=== PATIENT | male | born 1980 | race Hispanic/Latino ===

== ENCOUNTER 2018-06-22 16:14 | Inpatient (IN) | payer OTHER ==
[~2018-06-22] VITALS: Ht 175.3 cm; Wt 107.0 kg
--- OUTSIDE RECORDS SUMMARY | 2018-06-22 16:16 | XMS REPORT | Continuity of Care Document ---
Author Author [facility] Interface Address Unknown Phone Unavailable Problems Problem Status Onset Date Classification Date Reported Comments Source Acute tonsillitis 06/18/2016 Diagnosis 06/18/2016 [facility] Pain in throat 06/18/2016 Diagnosis 06/18/2016 [facility] ABSCESS, ANAL/RECTAL REGIONS SP I&D 07/20/14 Active 07/23/2014 Condition 07/23/2014 [facility] NEOPLASMS UNSPEC NATURE BONE SOFT TISSUE&SKIN Inactive 06/01/2013 Condition 07/23/2014 [facility] NEED PROPH VAC W/COMB YDNECL-DTURKHA-SPRACIK VAC Inactive 06/01/2013 Condition 07/23/2014 [facility] MUSCLE SPASM Inactive 06/01/2013 Condition 07/23/2014 [facility] MICROSCOPIC HEMATURIA Active 05/03/2013 Condition 07/23/2014 [facility] DERMATITIS Inactive 05/03/2013 Condition 07/23/2014 [facility] TACHYCARDIA Inactive 02/21/2013 Condition 07/23/2014 [facility] DYSPEPSIA Active 02/21/2013 Condition 07/23/2014 [facility] BACK PAIN, LUMBAR, WITH RADICULOPATHY Active 02/21/2013 Condition 07/23/2014 [facility] LUMBAR SPRAIN AND STRAIN Active 11/24/2012 Condition 07/23/2014 [facility] CHLAMYDIA URETHRITIS Inactive 05/10/2012 Condition 07/23/2014 [facility] SCREENING, DIABETES MELLITUS Inactive 05/06/2012 Condition 07/23/2014 [facility] TINEA PEDIS Active 05/06/2012 Condition 07/23/2014 [facility] ERECTILE DYSFUNCTION, NON-ORGANIC Active 05/06/2012 Condition 07/23/2014 [facility] SCREENING EXAMINATION FOR VENEREAL DISEASE Inactive 10/06/2011 Condition 07/23/2014 [facility] INFLUENZA Inactive 09/19/2010 Condition 07/23/2014 [facility] GASTROENTERITIS Inactive 06/23/2010 Condition 07/23/2014 [facility] PHARYNGITIS Inactive 05/04/2010 Condition 07/23/2014 [facility] BRONCHITIS, ACUTE Inactive 04/14/2010 Condition 07/23/2014 [facility] ANXIETY Inactive 11/10/2009 Condition 07/23/2014 [facility] CERVICAL STRAIN, WITH RADICULOPATHY Active 11/08/2009 Condition 07/23/2014 [facility] URI Inactive 10/07/2009 Condition 07/23/2014 [facility] PANIC ATTACK Inactive 07/05/2009 Condition 07/23/2014 [facility] HYPERTRIGLYCERIDEMIA Active 07/05/2009 Condition 07/23/2014 [facility] CHEST PAIN Inactive 05/15/2009 Condition 07/23/2014 [facility] WELL ADULT Inactive 05/15/2009 Condition 07/23/2014 [facility] INSOMNIA Active 05/15/2009 Condition 07/23/2014 [facility] ANXIETY DISORDER Active 12/28/2007 Condition 07/23/2014 [facility] HYPERTENSION - BENIGN ESSENTIAL Active Condition 07/23/2014 [facility] Acute Sinusitis Problem 06/18/2016 [facility] Medications Medication Details Route Status Patient Instructions Ordering Provider Order Date Source METRONIDAZOLE 250 MG TABS 1 tab by mouth three times daily Active 07/23/2014 [facility] CIPRO 500 MG TABS 1 tab every 12 hours Active 07/23/2014 [facility] LITHIUM CARBONATE 150 MG CAPS 1 capsule daily Active 07/23/2014 [facility] METHOCARBAMOL 750 MG TABS 1 tab as needed for spasms Active 07/23/2014 [facility] VITAMIN D2 TABS 1 tab by mouthonce weekly Active 07/23/2014 [facility] TRAMADOL HCL 50 MG TABS 1 tablet every 8 hours as needed for pain Active 07/23/2014 [facility] ATORVASTATIN CALCIUM 10 MG TABS 1 tab po daily prn for cholesterol Active 06/01/2013 [facility] LIDODERM 5 % PTCH Cut to size necessary and apply to affected area for 12 hours a day Active 06/01/2013 [facility] LIDODERM 5 % PTCH Cut to size necessary and apply to affected area for 12 hours a day No Longer Active 06/01/2013 [facility] ATORVASTATIN CALCIUM 10 MG TABS 1 tab po daily prn for cholesterol No Longer Active 06/01/2013 [facility] BENICAR HCT 40-25 MG TABS 1 tab po daily for blood pressure Active 05/03/2013 [facility] CLOTRIMAZOLE-BETAMETHASONE 1-0.05 % CREA Apply to the affected area twice a day x 7 days No Longer Active 05/03/2013 [facility] TERBINAFINE HCL 250 MG TABS 1 tablet daily x 1 month Active 05/03/2013 [facility] CLOTRIMAZOLE-BETAMETHASONE 1-0.05 % CREA Apply to the affected area twice a day x 7 days No Longer Active 05/03/2013 [facility] TERBINAFINE HCL 250 MG TABS 1 tablet daily x 1 month No Longer Active 05/03/2013 [facility] CYCLOBENZAPRINE HCL 10 MG TABS 1 tablet nightly as needed for muscle spasms Active 04/06/2013 [facility] CYCLOBENZAPRINE HCL 10 MG TABS 1 tablet nightly as needed for muscle spasms No Longer Active 04/06/2013 [facility] OMECLAMOX-UTE 500-500-20 MG MISC take as directed No Longer Active 02/22/2013 [facility] TERBINAFINE HCL 250 MG TABS 1 tab po daily x 12 weeks No Longer Active 02/03/2013 [facility] TERBINAFINE HCL 250 MG TABS 1 tab po daily x 12 weeks No Longer Active 02/03/2013 [facility] ATORVASTATIN CALCIUM 10 MG TABS 1 tab po daily for cholesterol Active 11/27/2012 [facility] EFFEXOR XR 150 MG [id number] 1 tab po qam for mood Active 11/24/2012 [facility] VICODIN 5-300 MG TABS 1-2 tabs po q8 hours as needed for severe pain No Longer Active 11/24/2012 [facility] BUPROPION HCL ER (XL) 150 MG [id number] 1 tab po daily for mood No Longer Active 11/24/2012 [facility] EFFEXOR XR 150 MG [id number] 1 tab po qam for mood Active 11/24/2012 [facility] NAPROXEN 500 MG TABS 1 tab po q12 hrs prn pain No Longer Active 05/18/2012 [facility] AZITHROMYCIN 250 MG TABS 4 tabs po x 1 now for infection No Longer Active 05/10/2012 [facility] PRISTIQ 50 MG [id number] 50 mg daily No Longer Active 05/06/2012 [facility] VIAGRA 50 MG TABS 50mg po x 1 prior to intercourse No Longer Active 05/06/2012 [facility] PRISTIQ 50 MG [id number] 50 mg daily No Longer Active 10/06/2011 [facility] ABILIFY 5 MG TABS 1 tab po daily No Longer Active 10/06/2011 [facility] BUSPIRONE HCL 15 MG TABS 1 tab po twice daily No Longer Active 10/06/2011 [facility] ABILIFY 5 MG TABS 1 tab po daily No Longer Active 10/06/2011 [facility] BUSPIRONE HCL 15 MG TABS 1 tab po twice daily No Longer Active 10/06/2011 [facility] HYDROCHLOROTHIAZIDE 25 MG TAB 1 PO qam No Longer Active 10/28/2010 [facility] XANAX 1 MG TABS 1 po bid prn anxiety No Longer Active 10/28/2010 [facility] PAXIL 20 MG TABS 1 po daily No Longer Active 10/28/2010 [facility] XANAX 1 MG TABS 1 po bid prn anxiety No Longer Active 10/28/2010 [facility] VICODIN 5-500 MG TABS 1 po q12h prn pain Inactive 08/13/2010 [facility] TUSSIONEX PENNKINETIC ER 8-10 MG/5ML LQCR 1 tsp bid prn cough drowsy caution Inactive 08/13/2010 [facility] ZITHROMAX Z-UTE TABS as directed for infection Inactive 08/13/2010 [facility] PREDNISONE 20 MG TABS 2 tabs po qd X 5 days Inactive 08/13/2010 [facility] SEROQUEL 100 MG TABS 1/2 - 1 po qhs prn insomnia / agitation No Longer Active 08/13/2010 [facility] PREDNISONE 20 MG TABS 2 tabs po qd X 5 days Inactive 08/13/2010 [facility] SEROQUEL 100 MG TABS 1/2 - 1 po qhs prn insomnia / agitation No Longer Active 08/13/2010 [facility] TAMIFLU 75 MG CAPS 1 tab po bid X 5 days with food Inactive 04/29/2010 [facility] SEROQUEL 100 MG TABS 1/2-1 po qhs prn agitation Inactive 04/07/2010 [facility] FLEXERIL 10 MG TABS 1 po qhs prn spasm Inactive 04/07/2010 [facility] MOXATAG 775 MG [id number] 1 po qd Inactive 04/07/2010 [facility] SEROQUEL 100 MG TABS 1/2-1 po qhs prn agitation Inactive 04/07/2010 [facility] MEDROL (UTE) TABS take as directed Inactive 02/04/2010 [facility] CYMBALTA 60 MG CPEP 1 po qd Inactive 12/26/2009 [facility] CLONAZEPAM 0.5 MG TABS 1 po qd prn anxiety Inactive 12/26/2009 [facility] CYMBALTA 60 MG CPEP 1 po qd Inactive 12/26/2009 [facility] CLONAZEPAM 0.5 MG TABS 1 po qd prn anxiety Inactive 12/26/2009 [facility] LISINOPRIL 10 MG TABS 1 po qd Inactive 11/08/2009 [facility] MOXATAG 775 MG [id number] 1 po qd Inactive 11/08/2009 [facility] TUSSIONEX PENNKINETIC ER 8-10 MG/5ML LQCR 1 tsp qhs prn cough drowsy caution Inactive 11/08/2009 [facility] LISINOPRIL 10 MG TABS 1 po qd Inactive 11/08/2009 [facility] ZOLOFT 100 MG TABS 1 po qd Inactive 08/27/2009 [facility] ZOLOFT 100 MG TABS 1 po qd Inactive 08/27/2009 [facility] ZOLOFT 50 MG TABS 1 po qd Inactive 07/05/2009 [facility] ZOLOFT 50 MG TABS 1 po qd Inactive 07/05/2009 [facility] COREG CR 80 MG CP24 1 po qd Inactive 02/15/2008 [facility] aripiprazole 5 MG Oral Tablet [Abilify] Abilify 5 mg tablet Active [facility] alprazolam alprazolam Active [facility] 1 ML methylprednisolone acetate 80 MG/ML Injection [Depo-Medrol] Depo-Medrol 80 mg/mL suspension for injection 80 mg/mL IM injectable x 1 Active [facility] Hydrochlorothiazide 25 MG Oral Tablet hydrochlorothiazide 25 mg tablet Active [facility] lisinopril lisinopril Active [facility] Hydrochlorothiazide 12.5 MG / Lisinopril 10 MG Oral Tablet lisinopril 10 mg-hydrochlorothiazide 12.5 mg tablet Active [facility] [place] Carbonate 150 MG Oral Capsule lithium carbonate 150 mg capsule TAKE 2 CAPSULES BY MOUTH EVERY DAY Active [facility] Paroxetine Hydrochloride 10 MG Oral Tablet paroxetine 10 mg tablet Active [facility] Paroxetine Hydrochloride 20 MG Oral Tablet paroxetine 20 mg tablet Active [facility] 24 HR desvenlafaxine succinate 100 MG Extended Release Oral Tablet [Pristiq] Pristiq 100 mg tablet,extended release Active [facility] 24 HR desvenlafaxine succinate 50 MG Extended Release Oral Tablet [Pristiq] Pristiq 50 mg tablet,extended release Active [facility] Allergies, Adverse Reactions, Alerts Substance Category Reaction Severity Reaction type Status Date Reported Comments Source Immunizations Immunization Date Given Site Status Last Updated Comments Source Results Order Name Results Value Reference Range Date Interpretation Comments Source RESULT negative 06/18/2016 [facility] SWAB LOCATION Left and Right tonsillar pillars 06/18/2016 [facility] Chemistry CHOLESTEROL 194 mg/dl - 199 02/21/2013 [facility] TRIGLYCERIDE 397 mg/dl - 149 02/21/2013 [facility] Chemistry HDL 55 mg/dl >=61 02/21/2013 [facility] Chemistry LDL 60 mg/dl - 99 02/21/2013 [facility] Chemistry SODIUM 135 MEQ/L mmol/L 135 - 145 02/21/2013 [facility] Chemistry POTASSIUM 4.2 MEQ/L mmol/L 3.5 - 5.1 02/21/2013 [facility] Chemistry CREATININE 1.1 mg/dL 0.5 - 1.4 02/21/2013 [facility] Chemistry BUN 20 mg/dL 7 - 22 02/21/2013 [facility] Chemistry BUN/CREAT 18 6 - 25 02/21/2013 [facility] Chemistry ALBUMIN 5.2 g/dL 3.5 - 5.0 02/21/2013 [facility] Chemistry CALCIUM 10.6 mg/dL 8.5 - 10.5 02/21/2013 [facility] Chemistry SGPT (ALT) 37 U/L 0 - 65 02/21/2013 [facility] Chemistry SGOT (AST) 34 U/L 0 - 37 02/21/2013 [facility] Chemistry ALK PHOS 115 U/L 39 - 136 02/21/2013 [facility] Chemistry TSH 2.400 uIU/mL 0.360 - 3.740 02/21/2013 [facility] Hematology HGB 17.1 g/dL 14.0 - 18.0 02/21/2013 [facility] Hematology HCT 49.2 % 42.0 - 54.0 02/21/2013 [facility] Hematology PLATELETS 333 K/CMM /mm3 133 - 450 02/21/2013 [facility] Urinalysis UA COLOR Yellow 02/21/2013 [facility] Urinalysis BACTERIA URN Occasional 02/21/2013 [facility] Chemistry CHOLESTEROL 270 mg/dl - 199 11/24/2012 [facility] TRIGLYCERIDE 348 mg/dl - 149 11/24/2012 [facility] Chemistry HDL 58 mg/dl >=61 11/24/2012 [facility] Chemistry LDL 142 mg/dl - 99 11/24/2012 [facility] Chemistry SODIUM 138 MEQ/L mmol/L 135 - 145 11/24/2012 [facility] Chemistry POTASSIUM 4.0 MEQ/L mmol/L 3.5 - 5.1 11/24/2012 [facility] Chemistry CREATININE 1.1 mg/dL 0.5 - 1.4 11/24/2012 [facility] Chemistry BUN 12 mg/dL 7 - 11/24/2012 [facility] Chemistry BUN/CREAT 11 6 - 25 11/24/2012 [facility] Chemistry ALBUMIN 4.6 g/dL 3.5 - 5.0 11/24/2012 [facility] Chemistry CALCIUM 9.6 mg/dL 8.5 - 10.5 11/24/2012 [facility] Chemistry SGPT (ALT) 29 U/L 0 - 65 11/24/2012 [facility] Chemistry SGOT (AST) 26 U/L 0 - 37 11/24/2012 [facility] Chemistry ALK PHOS 83 U/L 39 - 136 11/24/2012 [facility] Chemistry CHOLESTEROL 270 mg/dl - 199 11/24/2012 [facility] TRIGLYCERIDE 348 mg/dl - 149 11/24/2012 [facility] Chemistry HDL 58 mg/dl >=61 11/24/2012 [facility] Chemistry LDL 142 mg/dl - 99 11/24/2012 [facility] Chemistry SODIUM 138 MEQ/L mmol/L 135 - 145 11/24/2012 [facility] Chemistry POTASSIUM 4.0 MEQ/L mmol/L 3.5 - 5.1 11/24/2012 [facility] Chemistry CREATININE 1.1 mg/dL 0.5 - 1.4 11/24/2012 [facility] Chemistry BUN 12 mg/dL 7 - 22 11/24/2012 [facility] Chemistry BUN/CREAT 11 6 - 25 11/24/2012 [facility] Chemistry ALBUMIN 4.6 g/dL 3.5 - 5.0 11/24/2012 [facility] Chemistry CALCIUM 9.6 mg/dL 8.5 - 10.5 11/24/2012 [facility] Chemistry SGPT (ALT) 29 U/L 0 - 65 11/24/2012 [facility] Chemistry SGOT (AST) 26 U/L 0 - 37 11/24/2012 [facility] Chemistry ALK PHOS 83 U/L 39 - 136 11/24/2012 [facility] Urinalysis UA COLOR Yellow 11/24/2012 [facility] Urinalysis BACTERIA URN Occasional 11/24/2012 [facility] Urinalysis UA COLOR Yellow 11/24/2012 [facility] Urinalysis BACTERIA URN Occasional 11/24/2012 [facility] Chemistry HGBA1C 5.5 % 05/06/2012 [facility] CHOLESTEROL 226 mg/dl 120 - 200 05/06/2012 [facility] TRIGLYCERIDE 373 mg/dl 0 - 200 05/06/2012 [facility] Chemistry HDL 55 mg/dl >=35 05/06/2012 [facility] Chemistry LDL 96 mg/dl 0 - 129 05/06/2012 [facility] Chemistry SODIUM 141 MEQ/L mmol/L 135 - 145 05/06/2012 [facility] Chemistry POTASSIUM 3.9 MEQ/L mmol/L 3.5 - 5.1 05/06/2012 [facility] Chemistry CREATININE 1.0 mg/dL 0.5 - 1.4 05/06/2012 [facility] Chemistry BUN 14 mg/dL 7 - 22 05/06/2012 [facility] Chemistry BUN/CREAT 14 6 - 25 05/06/2012 [facility] Chemistry ALBUMIN 4.5 g/dL 3.5 - 5.0 05/06/2012 [facility] Chemistry CALCIUM 8.9 mg/dL 8.5 - 10.5 05/06/2012 [facility] Chemistry SGPT (ALT) 45 U/L 0 - 65 05/06/2012 [facility] Chemistry SGOT (AST) 39 U/L 0 - 37 05/06/2012 [facility] Chemistry ALK PHOS 69 U/L 39 - 136 05/06/2012 [facility] Serology RPR Non Reactive 05/06/2012 [facility] Urinalysis UA COLOR Yellow 05/06/2012 [facility] Urinalysis BACTERIA URN Few 05/06/2012 [facility] Serology RPR Non Reactive 10/06/2011 [facility] Chemistry CHOLESTEROL 235 mg/dl 120 - 200 06/19/2009 [facility] TRIGLYCERIDE 404 mg/dl 0 - 200 06/19/2009 [facility] Chemistry HDL 59 mg/dl >=35 06/19/2009 [facility] Chemistry LDL 95 mg/dl 0 - 129 06/19/2009 [facility] Chemistry TSH 1.610 uIU/mL 0.360 - 3.740 06/19/2009 [facility] Chemistry SODIUM 136 mmol/L 135 - 145 06/19/2009 [facility] Chemistry POTASSIUM 3.9 mmol/L 3.5 - 5.1 06/19/2009 [facility] Chemistry BUN 22 mg/dL 7 - 22 06/19/2009 [facility] Chemistry CREATININE 1.2 mg/dL 0.5 - 1.4 06/19/2009 [facility] Chemistry BUN/CREAT 18 6 - 25 06/19/2009 [facility] Chemistry ALBUMIN 4.4 g/dL 3.5 - 5.0 06/19/2009 [facility] Chemistry CALCIUM 9.5 mg/dL 8.5 - 10.5 06/19/2009 [facility] Chemistry SGOT (AST) 35 U/L 0 - 37 06/19/2009 [facility] Chemistry SGPT (ALT) 39 U/L 0 - 65 06/19/2009 [facility] Chemistry ALK PHOS 72 U/L 39 - 136 06/19/2009 [facility] Hematology HGB 16.0 g/dL 14.0 - 18.0 06/19/2009 [facility] Hematology HCT 46.4 % 42.0 - 54.0 06/19/2009 [facility] Hematology PLATELETS 187 K/CMM /mm3 133 - 450 06/19/2009 [facility] Urinalysis UA COLOR Yellow Yellow 06/19/2009 [facility] Vital Signs Vital Sign Value Date Comments Source Diastolic (mm Hg) 86 06/18/2016 [facility] Height 69 06/18/2016 [facility] Systolic (mm Hg) 130 06/18/2016 [facility] Weight 210 06/18/2016 [facility] Height 69 07/23/2014 [facility] Weight 209 07/23/2014 [facility] Temperature Oral (F) 95.8 F 07/23/2014 [facility] Heart Rate 94 07/23/2014 [facility] Systolic (mm Hg) 126 07/23/2014 [facility] Diastolic (mm Hg) 75 07/23/2014 [facility] Weight 212 06/01/2013 [facility] Temperature Oral (F) 96.9 F 06/01/2013 [facility] Systolic (mm Hg) 123 06/01/2013 [facility] Diastolic (mm Hg) 82 06/01/2013 [facility] Heart Rate 95 06/01/2013 [facility] Weight 206 05/03/2013 [facility] Temperature Oral (F) 97.2 F 05/03/2013 [facility] Systolic (mm Hg) 129 05/03/2013 [facility] Diastolic (mm Hg) 75 05/03/2013 [facility] Heart Rate 97 05/03/2013 [facility] Temperature Oral (F) 98.1 F 02/21/2013 [facility] Systolic (mm Hg) 148 02/21/2013 [facility] Diastolic (mm Hg) 106 02/21/2013 [facility] Weight 203 02/21/2013 [facility] Heart Rate 131 02/21/2013 [facility] Temperature Oral (F) 98.7 F 11/24/2012 [facility] Heart Rate 125 11/24/2012 [facility] Systolic (mm Hg) 135 11/24/2012 [facility] Diastolic (mm Hg) 92 11/24/2012 [facility] Weight 206 11/24/2012 [facility] Weight 212 05/06/2012 [facility] Respitory Rate 18 05/06/2012 [facility] Temperature Oral (F) 97.8 F 05/06/2012 [facility] Heart Rate 106 05/06/2012 [facility] Systolic (mm Hg) 148 05/06/2012 [facility] Diastolic (mm Hg) 98 05/06/2012 [facility] Weight 207 10/06/2011 [facility] Temperature Oral (F) 99.0 F 10/06/2011 [facility] Systolic (mm Hg) 159 10/06/2011 [facility] Diastolic (mm Hg) 102 10/06/2011 [facility] Heart Rate 105 10/06/2011 [facility] Weight 212 03/06/2011 [facility] Respitory Rate 18 03/06/2011 [facility] Heart Rate 94 03/06/2011 [facility] Systolic (mm Hg) 142 03/06/2011 [facility] Diastolic (mm Hg) 95 03/06/2011 [facility] Temperature Oral (F) 98.0 F 03/06/2011 [facility] Weight 208 02/11/2011 [facility] Temperature Oral (F) 98.1 F 02/11/2011 [facility] Respitory Rate 18 02/11/2011 [facility] Heart Rate 97 02/11/2011 [facility] Systolic (mm Hg) 158 02/11/2011 [facility] Diastolic (mm Hg) 102 02/11/2011 [facility] Weight 208 02/05/2011 [facility] Temperature Oral (F) 96.8 F 02/05/2011 [facility] Respitory Rate 20 02/05/2011 [facility] Heart Rate 85 02/05/2011 [facility] Systolic (mm Hg) 125 02/05/2011 [facility] Diastolic (mm Hg) 90 02/05/2011 [facility] Weight 205 10/28/2010 [facility] Temperature Oral (F) 96.6 F 10/28/2010 [facility] Systolic (mm Hg) 143 10/28/2010 [facility] Diastolic (mm Hg) 97 10/28/2010 [facility] Heart Rate 78 10/28/2010 [facility] Height 69 09/17/2010 [facility] Weight 201 09/17/2010 [facility] Temperature Oral (F) 97.7 F 09/17/2010 [facility] Heart Rate 98 09/17/2010 [facility] Systolic (mm Hg) 133 09/17/2010 [facility] Diastolic (mm Hg) 90 09/17/2010 [facility] Height 69 08/13/2010 [facility] Weight 204 08/13/2010 [facility] Temperature Oral (F) 97.4 F 08/13/2010 [facility] Systolic (mm Hg) 148 08/13/2010 [facility] Diastolic (mm Hg) 92 08/13/2010 [facility] Heart Rate 86 08/13/2010 [facility] Height 69 06/23/2010 [facility] Weight 200 06/23/2010 [facility] Respitory Rate 21 06/23/2010 [facility] Temperature Oral (F) 98.7 F 06/23/2010 [facility] Systolic (mm Hg) 137 06/23/2010 [facility] Diastolic (mm Hg) 92 06/23/2010 [facility] Heart Rate 100 06/23/2010 [facility] Height 69 04/29/2010 [facility] Weight 205 04/29/2010 [facility] Temperature Oral (F) 96.4 F 04/29/2010 [facility] Heart Rate 105 04/29/2010 [facility] Systolic (mm Hg) 135 04/29/2010 [facility] Diastolic (mm Hg) 95 04/29/2010 [facility] Height 69 04/15/2010 [facility] Weight 203 04/15/2010 [facility] Respitory Rate 21 04/15/2010 [facility] Heart Rate 91 04/15/2010 [facility] Systolic (mm Hg) 138 04/15/2010 [facility] Diastolic (mm Hg) 80 04/15/2010 [facility] Temperature Oral (F) 99.1 F 04/15/2010 [facility] Height 69 04/14/2010 [facility] Weight 202 04/14/2010 [facility] Temperature Oral (F) 97.8 F 04/14/2010 [facility] Respitory Rate 21 04/14/2010 [facility] Heart Rate 114 04/14/2010 [facility] Systolic (mm Hg) 141 04/14/2010 [facility] Diastolic (mm Hg) 96 04/14/2010 [facility] Height 69 04/07/2010 [facility] Weight 203 04/07/2010 [facility] Respitory Rate 21 04/07/2010 [facility] Temperature Oral (F) 100.1 F 04/07/2010 [facility] Heart Rate 91 04/07/2010 [facility] Systolic (mm Hg) 144 04/07/2010 [facility] Diastolic (mm Hg) 88 04/07/2010 [facility] Height 69 02/13/2010 [facility] Weight 202 02/13/2010 [facility] Temperature Oral (F) 97.6 F 02/13/2010 [facility] Heart Rate 71 02/13/2010 [facility] Systolic (mm Hg) 136 02/13/2010 [facility] Diastolic (mm Hg) 85 02/13/2010 [facility] Weight 202 02/04/2010 [facility] Temperature Oral (F) 97.6 F 02/04/2010 [facility] Height 69 02/04/2010 [facility] Systolic (mm Hg) 149 02/04/2010 [facility] Diastolic (mm Hg) 91 02/04/2010 [facility] Heart Rate 77 02/04/2010 [facility] Height 69 12/26/2009 [facility] Weight 205 12/26/2009 [facility] Temperature Oral (F) 97.6 F 12/26/2009 [facility] Respitory Rate 20 12/26/2009 [facility] Heart Rate 105 12/26/2009 [facility] Systolic (mm Hg) 159 12/26/2009 [facility] Diastolic (mm Hg) 86 12/26/2009 [facility] Height 69 11/08/2009 [facility] Weight 201 11/08/2009 [facility] Temperature Oral (F) 98.7 F 11/08/2009 [facility] Respitory Rate 20 11/08/2009 [facility] Heart Rate 82 11/08/2009 [facility] Systolic (mm Hg) 118 11/08/2009 [facility] Diastolic (mm Hg) 73 11/08/2009 [facility] Height 69 10/07/2009 [facility] Weight 208 10/07/2009 [facility] Temperature Oral (F) 98.8 F 10/07/2009 [facility] Respitory Rate 21 10/07/2009 [facility] Heart Rate 101 10/07/2009 [facility] Systolic (mm Hg) 142 10/07/2009 [facility] Diastolic (mm Hg) 99 10/07/2009 [facility] Height 69 08/27/2009 [facility] Weight 208 08/27/2009 [facility] Temperature Oral (F) 98.3 F 08/27/2009 [facility] Respitory Rate 20 08/27/2009 [facility] Heart Rate 80 08/27/2009 [facility] Systolic (mm Hg) 149 08/27/2009 [facility] Diastolic (mm Hg) 100 08/27/2009 [facility] Weight 216.75 07/05/2009 [facility] Height 69 07/05/2009 [facility] Temperature Oral (F) 98.5 F 07/05/2009 [facility] Respitory Rate 20 07/05/2009 [facility] Heart Rate 112 07/05/2009 [facility] Systolic (mm Hg) 143 07/05/2009 [facility] Diastolic (mm Hg) 95 07/05/2009 [facility] Height 69 05/15/2009 [facility] Weight 201 05/15/2009 [facility] Temperature Oral (F) 98.6 F 05/15/2009 [facility] Respitory Rate 20 05/15/2009 [facility] Heart Rate 74 05/15/2009 [facility] Systolic (mm Hg) 133 05/15/2009 [facility] Diastolic (mm Hg) 87 05/15/2009 [facility] Height 69 12/28/2007 [facility] Weight 207 12/28/2007 [facility] Temperature Oral (F) 98.4 F 12/28/2007 [facility] Respitory Rate 18 12/28/2007 [facility] Heart Rate 79 12/28/2007 [facility] Systolic (mm Hg) 159 12/28/2007 [facility] Diastolic (mm Hg) 98 12/28/2007 [facility] Encounters Location Location Details Encounter Type Encounter Number Reason For Visit Attending Provider ADM Date DC Date Status Source [facility] [facility] Visit [id number] Tiffanie Arteaga MD 05/03/2013 05/03/2013 [facility] Office Visit [id number] Tiffanie Arteaga MD 06/01/2013 06/01/2013 [facility] Office Visit [id number] Tiffanie Arteaga MD 07/23/2014 07/23/2014 [facility] Outpatient [id number] TIFFANIE ARTEAGA 12/26/2014 Active [facility] - [id number] Kane Seay, MOTHERCRAFT NURSE-C: [address], [place] [address], Ph. [id number] Kane Seay 06/18/2016 [facility] Procedures Procedure Code Date Perfomer Comments Source
--- OUTSIDE RECORDS SUMMARY | 2018-06-22 16:16 | XMS REPORT | Continuity of Care Document ---
Author [facility] Address Unknown Phone Unavailable Care Team Providers Care International Sales Manager Name Role Phone MD Arteaag Zenithe PP Unavailable Insurance Providers Payer name Policy type / Coverage type Policy ID Covered democrat ID Policy [place] [facility] [place]) [place] [employer] [place] Encounters Encounter Performer Location Date Office Visit Tiffanie Arteaga MD [facility] May 03, 2013 Problems Problem Effective Dates Problem Status ANXIETY Nov 10, 2009 Inactive HYPERTENSION - BENIGN ESSENTIAL Active CHEST PAIN May 15, 2009 Inactive ANXIETY DISORDER Dec 28, 2007 Active WELL ADULT May 15, 2009 Inactive INSOMNIA May 15, 2009 Active PANIC ATTACK July 05, 2009 Inactive HYPERTRIGLYCERIDEMIA July 05, 2009 Active PHARYNGITIS May 04, 2010 Inactive URI Oct 07, 2009 Inactive CERVICAL STRAIN, WITH RADICULOPATHY Nov 08, 2009 Active INFLUENZA Sep 19, 2010 Inactive PHARYNGITIS Apr 07, 2010 Inactive BRONCHITIS, ACUTE Apr 14, 2010 Inactive GASTROENTERITIS June 23, 2010 Inactive SCREENING EXAMINATION FOR VENEREAL DISEASE Oct 06, 2011 Inactive SCREENING, DIABETES MELLITUS May 06, 2012 Inactive TINEA PEDIS (FOOT) May 06, 2012 Active ERECTILE DYSFUNCTION, NON-ORGANIC May 06, 2012 Active CHLAMYDIA URETHRITIS May 10, 2012 Inactive LUMBAR SPRAIN AND STRAIN Nov 24, 2012 Active TACHYCARDIA Feb 21, 2013 Active DYSPEPSIA Feb 21, 2013 Active BACK PAIN, LUMBAR, WITH RADICULOPATHY Feb 21, 2013 Active MICROSCOPIC HEMATURIA May 03, 2013 Active DERMATITIS May 03, 2013 Active Procedures Date Description Comments Dec 28, 2007 smoking status never Oct 28, 2010 smoking status never smoker Medications Medication Instructions Start Date Status COREG CR 80 MG CP24 1 po qd Feb 15, 2008 Inactive ZOLOFT 50 MG TABS 1 po qd July 05, 2009 Inactive ZOLOFT 100 MG TABS 1 po qd Aug 27, 2009 Inactive LISINOPRIL 10 MG TABS 1 po qd Nov 08, 2009 Inactive MOXATAG 775 MG [id number] 1 po qd Nov 08, 2009 Inactive TUSSIONEX PENNKINETIC ER 8-10 MG/5ML LQCR 1 tsp qhs prn cough drowsy caution Nov 08, 2009 Inactive CYMBALTA 60 MG CPEP 1 po qd Dec 26, 2009 Inactive CLONAZEPAM 0.5 MG TABS 1 po qd prn anxiety Dec 26, 2009 Inactive MEDROL (UTE) TABS take as directed Feb 04, 2010 Inactive SEROQUEL 100 MG TABS 1/2-1 po qhs prn agitation Apr 07, 2010 Inactive FLEXERIL 10 MG TABS 1 po qhs prn spasm Apr 07, 2010 Inactive MOXATAG 775 MG [id number] 1 po qd Apr 07, 2010 Inactive TAMIFLU 75 MG CAPS 1 tab po bid X 5 days with food Apr 29, 2010 Inactive VICODIN 5-500 MG TABS 1 po q12h prn pain Aug 13, 2010 Inactive TUSSIONEX PENNKINETIC ER 8-10 MG/5ML LQCR 1 tsp bid prn cough drowsy caution Aug 13, 2010 Inactive ZITHROMAX Z-UTE TABS as directed for infection Aug 13, 2010 Inactive PREDNISONE 20 MG TABS 2 tabs po qd X 5 days Aug 13, 2010 Inactive HYDROCHLOROTHIAZIDE 25 MG TAB 1 PO qam Oct 28, 2010 Inactive XANAX 1 MG TABS 1 po bid prn anxiety Oct 28, 2010 Inactive SEROQUEL 100 MG TABS 1/2 - 1 po qhs prn insomnia / agitation Aug 13, 2010 Inactive PAXIL 20 MG TABS 1 po daily Oct 28, 2010 Inactive PRISTIQ 50 MG [id number] 50 mg daily Oct 06, 2011 Inactive ABILIFY 5 MG TABS 1 tab po daily Oct 06, 2011 Inactive BUSPIRONE HCL 15 MG TABS 1 tab po twice daily Oct 06, 2011 Inactive PRISTIQ 50 MG [id number] 50 mg daily May 06, 2012 Inactive AZITHROMYCIN 250 MG TABS 4 tabs po x 1 now for infection May 10, 2012 Inactive EFFEXOR XR 150 MG [id number] 1 tab po qam for mood Nov 24, 2012 Active VICODIN 5-300 MG TABS 1-2 tabs po q8 hours as needed for severe pain Nov 24, 2012 Active ATORVASTATIN CALCIUM 10 MG TABS 1 tab po daily for cholesterol Nov 27, 2012 Active CYCLOBENZAPRINE HCL 10 MG TABS 1 tablet nightly as needed for muscle spasms Apr 06, 2013 Active OMECLAMOX-UTE 500-500-20 MG MISC take as directed Feb 22, 2013 Inactive TERBINAFINE HCL 250 MG TABS 1 tab po daily x 12 weeks Feb 03, 2013 Inactive BENICAR HCT 40-25 MG TABS 1/2 tab po daily for blood pressure May 03, 2013 Active BUPROPION HCL ER (XL) 150 MG [id number] 1 tab po daily for mood Nov 24, 2012 Inactive NAPROXEN 500 MG TABS 1 tab po q12 hrs prn pain May 18, 2012 Inactive VIAGRA 50 MG TABS 50mg po x 1 prior to intercourse May 06, 2012 Inactive CLOTRIMAZOLE-BETAMETHASONE 1-0.05 % CREA Apply to the affected area twice a day x 7 days May 03, 2013 Active TERBINAFINE HCL 250 MG TABS 1 tablet daily x 1 month May 03, 2013 Active Vital Signs Date Description Test Result Dec 28, 2007 height E&M - 8302-2 HEIGHT 69 in Dec 28, 2007 weight E&M - 3141-9 WEIGHT 207 lb Dec 28, 2007 temperature E&M TEMPERATURE 98.4 deg f Dec 28, 2007 respiratory rate E&M - 9279-1 RESP RATE 18 /min Dec 28, 2007 pulse rate E&M - 8867-4 PULSE RATE 79 /min Dec 28, 2007 blood pressure, systolic - 8480-6 BP SYSTOLIC 159 mm Hg Dec 28, 2007 blood pressure, diastolic - 8462-4 BP DIASTOLIC 98 mm Hg May 15, 2009 height E&M - 8302-2 HEIGHT 69 in May 15, 2009 weight E&M - 3141-9 WEIGHT 201 lb May 15, 2009 temperature E&M TEMPERATURE 98.6 deg f May 15, 2009 respiratory rate E&M - 9279-1 RESP RATE 20 /min May 15, 2009 pulse rate E&M - 8867-4 PULSE RATE 74 /min May 15, 2009 blood pressure, systolic - 8480-6 BP SYSTOLIC 133 mm Hg May 15, 2009 blood pressure, diastolic - 8462-4 BP DIASTOLIC 87 mm Hg July 05, 2009 weight E&M - 3141-9 WEIGHT 216.75 lb July 05, 2009 height E&M - 8302-2 HEIGHT 69 in July 05, 2009 temperature E&M TEMPERATURE 98.5 deg f July 05, 2009 respiratory rate E&M - 9279-1 RESP RATE 20 /min July 05, 2009 pulse rate E&M - 8867-4 PULSE RATE 112 /min July 05, 2009 blood pressure, systolic - 8480-6 BP SYSTOLIC 143 mm Hg July 05, 2009 blood pressure, diastolic - 8462-4 BP DIASTOLIC 95 mm Hg Aug 27, 2009 height E&M - 8302-2 HEIGHT 69 in Aug 27, 2009 weight E&M - 3141-9 WEIGHT 208 lb Aug 27, 2009 temperature E&M TEMPERATURE 98.3 deg f Aug 27, 2009 respiratory rate E&M - 9279-1 RESP RATE 20 /min Aug 27, 2009 pulse rate E&M - 8867-4 PULSE RATE 80 /min Aug 27, 2009 blood pressure, systolic - 8480-6 BP SYSTOLIC 149 mm Hg Aug 27, 2009 blood pressure, diastolic - 8462-4 BP DIASTOLIC 100 mm Hg Oct 07, 2009 height E&M - 8302-2 HEIGHT 69 in Oct 07, 2009 weight E&M - 3141-9 WEIGHT 208 lb Oct 07, 2009 temperature E&M TEMPERATURE 98.8 deg f Oct 07, 2009 respiratory rate E&M - 9279-1 RESP RATE 21 /min Oct 07, 2009 pulse rate E&M - 8867-4 PULSE RATE 101 /min Oct 07, 2009 blood pressure, systolic - 8480-6 BP SYSTOLIC 142 mm Hg Oct 07, 2009 blood pressure, diastolic - 8462-4 BP DIASTOLIC 99 mm Hg Nov 08, 2009 height E&M - 8302-2 HEIGHT 69 in Nov 08, 2009 weight E&M - 3141-9 WEIGHT 201 lb Nov 08, 2009 temperature E&M TEMPERATURE 98.7 deg f Nov 08, 2009 respiratory rate E&M - 9279-1 RESP RATE 20 /min Nov 08, 2009 pulse rate E&M - 8867-4 PULSE RATE 82 /min Nov 08, 2009 blood pressure, systolic - 8480-6 BP SYSTOLIC 118 mm Hg Nov 08, 2009 blood pressure, diastolic - 8462-4 BP DIASTOLIC 73 mm Hg Dec 26, 2009 height E&M - 8302-2 HEIGHT 69 in Dec 26, 2009 weight E&M - 3141-9 WEIGHT 205 lb Dec 26, 2009 temperature E&M TEMPERATURE 97.6 deg f Dec 26, 2009 respiratory rate E&M - 9279-1 RESP RATE 20 /min Dec 26, 2009 pulse rate E&M - 8867-4 PULSE RATE 105 /min Dec 26, 2009 blood pressure, systolic - 8480-6 BP SYSTOLIC 159 mm Hg Dec 26, 2009 blood pressure, diastolic - 8462-4 BP DIASTOLIC 86 mm Hg Feb 04, 2010 weight E&M - 3141-9 WEIGHT 202 lb Feb 04, 2010 temperature E&M TEMPERATURE 97.6 deg f Feb 04, 2010 height E&M - 8302-2 HEIGHT 69 in Feb 04, 2010 blood pressure, systolic - 8480-6 BP SYSTOLIC 149 mm Hg Feb 04, 2010 blood pressure, diastolic - 8462-4 BP DIASTOLIC 91 mm Hg Feb 04, 2010 pulse rate E&M - 8867-4 PULSE RATE 77 /min Feb 13, 2010 height E&M - 8302-2 HEIGHT 69 in Feb 13, 2010 weight E&M - 3141-9 WEIGHT 202 lb Feb 13, 2010 temperature E&M TEMPERATURE 97.6 deg f Feb 13, 2010 pulse rate E&M - 8867-4 PULSE RATE 71 /min Feb 13, 2010 blood pressure, systolic - 8480-6 BP SYSTOLIC 136 mm Hg Feb 13, 2010 blood pressure, diastolic - 8462-4 BP DIASTOLIC 85 mm Hg Apr 07, 2010 height E&M - 8302-2 HEIGHT 69 in Apr 07, 2010 weight E&M - 3141-9 WEIGHT 203 lb Apr 07, 2010 respiratory rate E&M - 9279-1 RESP RATE 21 /min Apr 07, 2010 temperature E&M TEMPERATURE 100.1 deg f Apr 07, 2010 pulse rate E&M - 8867-4 PULSE RATE 91 /min Apr 07, 2010 blood pressure, systolic - 8480-6 BP SYSTOLIC 144 mm Hg Apr 07, 2010 blood pressure, diastolic - 8462-4 BP DIASTOLIC 88 mm Hg Apr 14, 2010 height E&M - 8302-2 HEIGHT 69 in Apr 14, 2010 weight E&M - 3141-9 WEIGHT 202 lb Apr 14, 2010 temperature E&M TEMPERATURE 97.8 deg f Apr 14, 2010 respiratory rate E&M - 9279-1 RESP RATE 21 /min Apr 14, 2010 pulse rate E&M - 8867-4 PULSE RATE 114 /min Apr 14, 2010 blood pressure, systolic - 8480-6 BP SYSTOLIC 141 mm Hg Apr 14, 2010 blood pressure, diastolic - 8462-4 BP DIASTOLIC 96 mm Hg Apr 15, 2010 height E&M - 8302-2 HEIGHT 69 in Apr 15, 2010 weight E&M - 3141-9 WEIGHT 203 lb Apr 15, 2010 respiratory rate E&M - 9279-1 RESP RATE 21 /min Apr 15, 2010 pulse rate E&M - 8867-4 PULSE RATE 91 /min Apr 15, 2010 blood pressure, systolic - 8480-6 BP SYSTOLIC 138 mm Hg Apr 15, 2010 blood pressure, diastolic - 8462-4 BP DIASTOLIC 80 mm Hg Apr 15, 2010 temperature E&M TEMPERATURE 99.1 deg f Apr 29, 2010 height E&M - 8302-2 HEIGHT 69 in Apr 29, 2010 weight E&M - 3141-9 WEIGHT 205 lb Apr 29, 2010 temperature E&M TEMPERATURE 96.4 deg f Apr 29, 2010 pulse rate E&M - 8867-4 PULSE RATE 105 /min Apr 29, 2010 blood pressure, systolic - 8480-6 BP SYSTOLIC 135 mm Hg Apr 29, 2010 blood pressure, diastolic - 8462-4 BP DIASTOLIC 95 mm Hg June 23, 2010 height E&M - 8302-2 HEIGHT 69 in June 23, 2010 weight E&M - 3141-9 WEIGHT 200 lb June 23, 2010 respiratory rate E&M - 9279-1 RESP RATE 21 /min June 23, 2010 temperature E&M TEMPERATURE 98.7 deg f June 23, 2010 blood pressure, systolic - 8480-6 BP SYSTOLIC 137 mm Hg June 23, 2010 blood pressure, diastolic - 8462-4 BP DIASTOLIC 92 mm Hg June 23, 2010 pulse rate E&M - 8867-4 PULSE RATE 100 /min Aug 13, 2010 height E&M - 8302-2 HEIGHT 69 in Aug 13, 2010 weight E&M - 3141-9 WEIGHT 204 lb Aug 13, 2010 temperature E&M TEMPERATURE 97.4 deg f Aug 13, 2010 blood pressure, systolic - 8480-6 BP SYSTOLIC 148 mm Hg Aug 13, 2010 blood pressure, diastolic - 8462-4 BP DIASTOLIC 92 mm Hg Aug 13, 2010 pulse rate E&M - 8867-4 PULSE RATE 86 /min Sep 17, 2010 height E&M - 8302-2 HEIGHT 69 in Sep 17, 2010 weight E&M - 3141-9 WEIGHT 201 lb Sep 17, 2010 temperature E&M TEMPERATURE 97.7 deg f Sep 17, 2010 pulse rate E&M - 8867-4 PULSE RATE 98 /min Sep 17, 2010 blood pressure, systolic - 8480-6 BP SYSTOLIC 133 mm Hg Sep 17, 2010 blood pressure, diastolic - 8462-4 BP DIASTOLIC 90 mm Hg Oct 28, 2010 weight E&M - 3141-9 WEIGHT 205 lb Oct 28, 2010 temperature E&M TEMPERATURE 96.6 deg f Oct 28, 2010 blood pressure, systolic - 8480-6 BP SYSTOLIC 143 mm Hg Oct 28, 2010 blood pressure, diastolic - 8462-4 BP DIASTOLIC 97 mm Hg Oct 28, 2010 pulse rate E&M - 8867-4 PULSE RATE 78 /min Feb 05, 2011 weight E&M - 3141-9 WEIGHT 208 lb Feb 05, 2011 temperature E&M TEMPERATURE 96.8 deg f Feb 05, 2011 respiratory rate E&M - 9279-1 RESP RATE 20 /min Feb 05, 2011 pulse rate E&M - 8867-4 PULSE RATE 85 /min Feb 05, 2011 blood pressure, systolic - 8480-6 BP SYSTOLIC 125 mm Hg Feb 05, 2011 blood pressure, diastolic - 8462-4 BP DIASTOLIC 90 mm Hg Feb 11, 2011 weight E&M - 3141-9 WEIGHT 208 lb Feb 11, 2011 temperature E&M TEMPERATURE 98.1 deg f Feb 11, 2011 respiratory rate E&M - 9279-1 RESP RATE 18 /min Feb 11, 2011 pulse rate E&M - 8867-4 PULSE RATE 97 /min Feb 11, 2011 blood pressure, systolic - 8480-6 BP SYSTOLIC 158 mm Hg Feb 11, 2011 blood pressure, diastolic - 8462-4 BP DIASTOLIC 102 mm Hg Mar 06, 2011 weight E&M - 3141-9 WEIGHT 212 lb Mar 06, 2011 respiratory rate E&M - 9279-1 RESP RATE 18 /min Mar 06, 2011 pulse rate E&M - 8867-4 PULSE RATE 94 /min Mar 06, 2011 blood pressure, systolic - 8480-6 BP SYSTOLIC 142 mm Hg Mar 06, 2011 blood pressure, diastolic - 8462-4 BP DIASTOLIC 95 mm Hg Mar 06, 2011 temperature E&M TEMPERATURE 98.0 deg f Oct 06, 2011 weight E&M - 3141-9 WEIGHT 207 lb Oct 06, 2011 temperature E&M TEMPERATURE 99.0 deg f Oct 06, 2011 blood pressure, systolic - 8480-6 BP SYSTOLIC 159 mm Hg Oct 06, 2011 blood pressure, diastolic - 8462-4 BP DIASTOLIC 102 mm Hg Oct 06, 2011 pulse rate E&M - 8867-4 PULSE RATE 105 /min May 06, 2012 weight E&M - 3141-9 WEIGHT 212 lb May 06, 2012 respiratory rate E&M - 9279-1 RESP RATE 18 /min May 06, 2012 temperature E&M TEMPERATURE 97.8 deg f May 06, 2012 pulse rate E&M - 8867-4 PULSE RATE 106 /min May 06, 2012 blood pressure, systolic - 8480-6 BP SYSTOLIC 148 mm Hg May 06, 2012 blood pressure, diastolic - 8462-4 BP DIASTOLIC 98 mm Hg Nov 24, 2012 temperature E&M TEMPERATURE 98.7 deg f Nov 24, 2012 pulse rate E&M - 8867-4 PULSE RATE 125 /min Nov 24, 2012 blood pressure, systolic - 8480-6 BP SYSTOLIC 135 mm Hg Nov 24, 2012 blood pressure, diastolic - 8462-4 BP DIASTOLIC 92 mm Hg Nov 24, 2012 weight E&M - 3141-9 WEIGHT 206 lb Feb 21, 2013 temperature E&M TEMPERATURE 98.1 deg f Feb 21, 2013 blood pressure, systolic - 8480-6 BP SYSTOLIC 148 mm Hg Feb 21, 2013 blood pressure, diastolic - 8462-4 BP DIASTOLIC 106 mm Hg Feb 21, 2013 weight E&M - 3141-9 WEIGHT 203 lb Feb 21, 2013 pulse rate E&M - 8867-4 PULSE RATE 131 /min May 03, 2013 weight E&M - 3141-9 WEIGHT 206 lb May 03, 2013 temperature E&M TEMPERATURE 97.2 deg f May 03, 2013 blood pressure, systolic - 8480-6 BP SYSTOLIC 129 mm Hg May 03, 2013 blood pressure, diastolic - 8462-4 BP DIASTOLIC 75 mm Hg May 03, 2013 pulse rate E&M - 8867-4 PULSE RATE 97 /min Results Date Description Test Name Value Reference Interpretation Status June 19, 2009 hemoglobin, blood HGB 16.0 g/dL 14.0-18.0 June 19, 2009 hematocrit, blood HCT 46.4 % 42.0-54.0 June 19, 2009 platelet count PLATELETS 187 K/CMM /mm3 133-450 Feb 21, 2013 hemoglobin, blood HGB 17.1 g/dL 14.0-18.0 Feb 21, 2013 hematocrit, blood HCT 49.2 % 42.0-54.0 Feb 21, 2013 platelet count PLATELETS 333 K/CMM /mm3 133-450 Nov 24, 2012 urine color UA COLOR Yellow null Yellow Nov 24, 2012 bacteria, urine microscopy BACTERIA URN Occasional null None Seen June 19, 2009 urine color UA COLOR Yellow null Yellow- May 06, 2012 urine color UA COLOR Yellow null Yellow May 06, 2012 bacteria, urine microscopy BACTERIA URN Few null None Seen Nov 24, 2012 urine color UA COLOR Yellow null Yellow Nov 24, 2012 bacteria, urine microscopy BACTERIA URN Occasional null None Seen Feb 21, 2013 urine color UA COLOR Yellow null Yellow Feb 21, 2013 bacteria, urine microscopy BACTERIA URN Occasional null None Seen Nov 24, 2012 cholesterol, serum CHOLESTEROL 270 mg/dl <=199 High Nov 24, 2012 triglyceride, serum, fasting TRIGLYCERIDE 348 mg/dl <=149 High Nov 24, 2012 HDL cholesterol, serum HDL 58 mg/dl >=61 Low Nov 24, 2012 LDL cholesterol, serum LDL 142 mg/dl <=99 High Nov 24, 2012 sodium, serum SODIUM 138 MEQ/L mmol/L 135-145 Nov 24, 2012 potassium, serum POTASSIUM 4.0 MEQ/L mmol/L 3.5-5.1 Nov 24, 2012 creatinine, serum CREATININE 1.1 mg/dL 0.5-1.4 Nov 24, 2012 urea nitrogen, blood BUN 12 mg/dL 7-Nov 24, 2012 urea nitrogen/creatinine ratio, serum BUN/CREAT 11 null 6-25 Nov 24, 2012 albumin, serum ALBUMIN 4.6 g/dL 3.5-5.0 Nov 24, 2012 calcium, serum CALCIUM 9.6 mg/dL 8.5-10.5 Nov 24, 2012 alanine aminotransferase (SGPT), serum SGPT (ALT) 29 U/L 0-65 Nov 24, 2012 aspartate aminotransferase (SGOT), serum SGOT (AST) 26 U/L 0-37 Nov 24, 2012 alkaline phosphatase, serum ALK PHOS 83 U/L 39-136 June 19, 2009 cholesterol, serum CHOLESTEROL 235 mg/dl 120-200 High June 19, 2009 triglyceride, serum, fasting TRIGLYCERIDE 404 mg/dl 0-200 High June 19, 2009 HDL cholesterol, serum HDL 59 mg/dl >=35- June 19, 2009 LDL cholesterol, serum LDL 95 mg/dl 0-129 June 19, 2009 thyroid stimulating hormone, serum TSH 1.610 uIU/mL 0.360-3.740 June 19, 2009 sodium, serum SODIUM 136 mmol/L 135-145 June 19, 2009 potassium, serum POTASSIUM 3.9 mmol/L 3.5-5.1 June 19, 2009 urea nitrogen, blood BUN 22 mg/dL 7-June 19, 2009 creatinine, serum CREATININE 1.2 mg/dL 0.5-1.4 June 19, 2009 urea nitrogen/creatinine ratio, serum BUN/CREAT 18 null 6-25 June 19, 2009 albumin, serum ALBUMIN 4.4 g/dL 3.5-5.0 June 19, 2009 calcium, serum CALCIUM 9.5 mg/dL 8.5-10.5 June 19, 2009 aspartate aminotransferase (SGOT), serum SGOT (AST) 35 U/L 0-37 June 19, 2009 alanine aminotransferase (SGPT), serum SGPT (ALT) 39 U/L 0-65 June 19, 2009 alkaline phosphatase, serum ALK PHOS 72 U/L 39-136 May 06, 2012 hemoglobin A1C, blood, as % of total hemoglobin HGBA1C 5.5 % May 06, 2012 cholesterol, serum CHOLESTEROL 226 mg/dl 120-200 High May 06, 2012 triglyceride, serum, fasting TRIGLYCERIDE 373 mg/dl 0-200 High May 06, 2012 HDL cholesterol, serum HDL 55 mg/dl >=35 May 06, 2012 LDL cholesterol, serum LDL 96 mg/dl 0-129 May 06, 2012 sodium, serum SODIUM 141 MEQ/L mmol/L 135-145 May 06, 2012 potassium, serum POTASSIUM 3.9 MEQ/L mmol/L 3.5-5.1 May 06, 2012 creatinine, serum CREATININE 1.0 mg/dL 0.5-1.4 May 06, 2012 urea nitrogen, blood BUN 14 mg/dL -May 06, 2012 urea nitrogen/creatinine ratio, serum BUN/CREAT 14 null 6-25 May 06, 2012 albumin, serum ALBUMIN 4.5 g/dL 3.5-5.0 May 06, 2012 calcium, serum CALCIUM 8.9 mg/dL 8.5-10.5 May 06, 2012 alanine aminotransferase (SGPT), serum SGPT (ALT) 45 U/L 0-65 May 06, 2012 aspartate aminotransferase (SGOT), serum SGOT (AST) 39 U/L 0-37 High May 06, 2012 alkaline phosphatase, serum ALK PHOS 69 U/L 39-136 Nov 24, 2012 cholesterol, serum CHOLESTEROL 270 mg/dl <=199 High Nov 24, 2012 triglyceride, serum, fasting TRIGLYCERIDE 348 mg/dl <=149 High Nov 24, 2012 HDL cholesterol, serum HDL 58 mg/dl >=61 Low Nov 24, 2012 LDL cholesterol, serum LDL 142 mg/dl <=99 High Nov 24, 2012 sodium, serum SODIUM 138 MEQ/L mmol/L 135-145 Nov 24, 2012 potassium, serum POTASSIUM 4.0 MEQ/L mmol/L 3.5-5.1 Nov 24, 2012 creatinine, serum CREATININE 1.1 mg/dL 0.5-1.4 Nov 24, 2012 urea nitrogen, blood BUN 12 mg/dL 7-Nov 24, 2012 urea nitrogen/creatinine ratio, serum BUN/CREAT 11 null 6-25 Nov 24, 2012 albumin, serum ALBUMIN 4.6 g/dL 3.5-5.0 Nov 24, 2012 calcium, serum CALCIUM 9.6 mg/dL 8.5-10.5 Nov 24, 2012 alanine aminotransferase (SGPT), serum SGPT (ALT) 29 U/L 0-65 Nov 24, 2012 aspartate aminotransferase (SGOT), serum SGOT (AST) 26 U/L 0-37 Nov 24, 2012 alkaline phosphatase, serum ALK PHOS 83 U/L 39-136 Feb 21, 2013 cholesterol, serum CHOLESTEROL 194 mg/dl <=199 Feb 21, 2013 triglyceride, serum, fasting TRIGLYCERIDE 397 mg/dl <=149 High Feb 21, 2013 HDL cholesterol, serum HDL 55 mg/dl >=61 Low Feb 21, 2013 LDL cholesterol, serum LDL 60 mg/dl <=99 Feb 21, 2013 sodium, serum SODIUM 135 MEQ/L mmol/L 135-145 Feb 21, 2013 potassium, serum POTASSIUM 4.2 MEQ/L mmol/L 3.5-5.1 Feb 21, 2013 creatinine, serum CREATININE 1.1 mg/dL 0.5-1.4 Feb 21, 2013 urea nitrogen, blood BUN 20 mg/dL -Feb 21, 2013 urea nitrogen/creatinine ratio, serum BUN/CREAT 18 null 6-25 Feb 21, 2013 albumin, serum ALBUMIN 5.2 g/dL 3.5-5.0 High Feb 21, 2013 calcium, serum CALCIUM 10.6 mg/dL 8.5-10.5 High Feb 21, 2013 alanine aminotransferase (SGPT), serum SGPT (ALT) 37 U/L 0-65 Feb 21, 2013 aspartate aminotransferase (SGOT), serum SGOT (AST) 34 U/L 0-37 Feb 21, 2013 alkaline phosphatase, serum ALK PHOS 115 U/L 39-136 Feb 21, 2013 thyroid stimulating hormone, serum TSH 2.400 uIU/mL 0.360-3.740 Oct 06, 2011 rapid plasma reagin antibody, serum RPR Non Reactive null Non Reactive May 06, 2012 rapid plasma reagin antibody, serum RPR Non Reactive null Non Reactive
--- OUTSIDE RECORDS SUMMARY | 2018-06-22 16:17 | XMS REPORT | Continuity of Care Document ---
Author Author [facility] Organization [facility] Address Unknown Phone Unavailable Care Team Providers Care Ict Business Analyst Name Role Phone MD Arteaga Zenithe PP Unavailable Insurance Providers Payer name Policy type / Coverage type Policy ID Covered constitution party ID Policy [place] [facility] ([place]) [place]) [place] [facility] [place] Encounters Encounter Performer Location Date Office Visit Tiffanie Arteaga MD [facility] Jul 23, 2014 Problems Problem Effective Dates Problem Status ANXIETY [...] 24, 2012 Active TACHYCARDIA Feb 21, 2013 Inactive DYSPEPSIA Feb 21, 2013 Active BACK PAIN, LUMBAR, WITH RADICULOPATHY Feb 21, 2013 Active MICROSCOPIC HEMATURIA May 03, 2013 Active DERMATITIS May 03, 2013 Inactive NEOPLASMS UNSPEC NATURE BONE SOFT TISSUE&SKIN Jun 01, 2013 Inactive NEED PROPH VAC W/COMB [id number] VAC Jun 01, 2013 Inactive MUSCLE SPASM Jun 01, 2013 Inactive ABSCESS, ANAL/RECTAL REGIONS SP I&D 07/20/14 Jul 23, 2014 Active Procedures Date Description Comments Dec 28, [...] Nov 08, 2009 Inactive MOXATAG 775 MG [id number] 1 po qd Nov 08, 2009 Inactive [...] Apr 07, 2010 Inactive MOXATAG 775 MG [id number] 1 po qd Apr 07, 2010 Inactive [...] Oct 28, 2010 Inactive PRISTIQ 50 MG [id number] 50 mg daily Oct 06, 2011 Inactive ABILIFY 5 MG TABS 1 tab po daily Oct 06, 2011 Inactive BUSPIRONE HCL 15 MG TABS 1 tab po twice daily Oct 06, 2011 Inactive PRISTIQ 50 MG [id number] 50 mg daily May 06, 2012 Inactive AZITHROMYCIN 250 MG TABS 4 tabs po x 1 now for infection May 10, 2012 Inactive EFFEXOR XR 150 MG LD66K-IOO 1 tab po qam for mood Nov 24, 2012 Active OMECLAMOX-UTE 500-500-20 MG MISC take as directed Feb 22, 2013 Inactive TERBINAFINE HCL 250 MG TABS 1 tab po daily x 12 weeks Feb 03, 2013 Inactive BUPROPION HCL ER (XL) 150 MG [id number]-DCJ 1 tab po daily for mood Nov 24, 2012 Inactive NAPROXEN 500 MG TABS 1 tab po q12 hrs prn pain May 18, 2012 Inactive VIAGRA 50 MG TABS 50mg po x 1 prior to intercourse May 06, 2012 Inactive CLOTRIMAZOLE-BETAMETHASONE 1-0.05 % CREA Apply to the affected area twice a day x 7 days May 03, 2013 Inactive METRONIDAZOLE 250 MG TABS 1 tab by mouth three times daily Jul 23, 2014 Active TERBINAFINE HCL 250 MG TABS 1 tablet daily x 1 month May 03, 2013 Inactive LIDODERM 5 % PTCH Cut to size necessary and apply to affected area for 12 hours a day Jun 01, 2013 Inactive VICODIN 5-300 MG TABS 1-2 tabs po q8 hours as needed for severe pain Nov 24, 2012 Inactive ATORVASTATIN CALCIUM 10 MG TABS 1 tab po daily prn for cholesterol Jun 01, 2013 Inactive CIPRO 500 MG TABS 1 tab every 12 hours Jul 23, 2014 Active LITHIUM CARBONATE 150 MG CAPS 1 capsule daily Jul 23, 2014 Active METHOCARBAMOL 750 MG TABS 1 tab as needed for spasms Jul 23, 2014 Active VITAMIN D2 TABS 1 tab by mouthonce weekly Jul 23, 2014 Active CYCLOBENZAPRINE HCL 10 MG TABS 1 tablet nightly as needed for muscle spasms Apr 06, 2013 Inactive TRAMADOL HCL 50 MG TABS 1 tablet every 8 hours as needed for pain Jul 23, 2014 Active BENICAR HCT 40-25 MG TABS 1 tab po daily for blood pressure May 03, 2013 Active Vital Signs Date [...] E&M - 8867-4 PULSE RATE 97 /min Jun 01, 2013 weight E&M - 3141-9 WEIGHT 212 lb Jun 01, 2013 temperature E&M TEMPERATURE 96.9 deg f Jun 01, 2013 blood pressure, systolic - 8480-6 BP SYSTOLIC 123 mm Hg Jun 01, 2013 blood pressure, diastolic - 8462-4 BP DIASTOLIC 82 mm Hg Jun 01, 2013 pulse rate E&M - 8867-4 PULSE RATE 95 /min Jul 23, 2014 height E&M - 8302-2 HEIGHT 69 in Jul 23, 2014 weight E&M - 3141-9 WEIGHT 209 lb Jul 23, 2014 temperature E&M TEMPERATURE 95.8 deg f Jul 23, 2014 pulse rate E&M - 8867-4 PULSE RATE 94 /min Jul 23, 2014 blood pressure, systolic - 8480-6 BP SYSTOLIC 126 mm Hg Jul 23, 2014 blood pressure, diastolic - 8462-4 BP DIASTOLIC 75 mm Hg Results Date Description Test Name Value Reference [...] 2012 urea nitrogen, blood BUN 12 mg/dL -Nov 24, 2012 urea nitrogen/creatinine ratio, serum BUN/CREAT [...] 2012 urea nitrogen, blood BUN 14 mg/dL 7-22 May 06, 2012 urea nitrogen/creatinine ratio, serum BUN/CREAT [...] 2013 urea nitrogen, blood BUN 20 mg/dL 7-Feb 21, 2013 urea nitrogen/creatinine ratio, serum BUN/CREAT [...]
--- OUTSIDE RECORDS SUMMARY | 2018-06-22 16:17 | XMS REPORT | Encounter Summary ---
Author Organization Unknown Address [address] [place] [id number] Phone [phone] Reason for Visit Medical Complaint Instructions 1. Acute tonsillitis tonsillitis: care instructions rapid strep group A, throat 2. Pain in throat Depo-Medrol 80 mg/mL suspension for injection Discussion Note: None recorded. Plan of Care Patient Instructions finish amox at home. otc mucinex as needed. take rx as directed. otc tylenol or ibuprofen prn. change toothbrush after 3 days. do not share or eat after one another. follow up pcp Reminders Provider Appointments None recorded. Lab Rapid Strep Group a, Throat 06/18/2016 [facility] Referral None recorded. Procedures None recorded. Surgeries None recorded. Imaging None recorded. Medications Name Start Date Abilify 5 mg tablet alprazolam Depo-Medrol 80 mg/mL suspension for injection 80 mg/mL IM injectable x 1 hydrochlorothiazide 25 mg tablet lisinopril lisinopril 10 mg-hydrochlorothiazide 12.5 mg tablet lithium carbonate 150 mg capsule TAKE 2 CAPSULES BY MOUTH EVERY DAY paroxetine 10 mg tablet paroxetine 20 mg tablet Pristiq 100 mg tablet,extended release Pristiq 50 mg tablet,extended release Medications Administered Name Date Depo-Medrol 80 mg/mL suspension for injection 80 mg/mL IM injectable x 1 [id number]:16:14 Vitals Height Weight BMI Blood Pressure 5 ft 9 in 210 lbs 31 130/86 Lab Results Date Name Specimen Result Interpretation Description Value Range Status Address Rapid Strep Group a, Throat Result negative [facility]: [address] [place] [address] Swab Location Left and Right tonsillar pillars [facility]: [address] [place] [address] Allergies Code Code System Name Reaction Severity Onset NKDA Problems Name Status Onset Date Source Acute Sinusitis Active Encounter Procedures None recorded. Vaccine List None recorded. Social History Smoking Status Never Smoker Past Encounters 06/18/2016 Acute Tonsillitis; Pain in Throat [facility]: [address] [place] [address], Ph. History of Present Illness Throat-Oral Complaint Reported By: Patient HPI: Location: throat. Quality: sore throat. Severity: mild, moderate. Duration: 2 days. Onset/Timing: gradual. Context: no sick contacts, no foreign travel, non-smoker. Modifying factors: OTC medication. Associated Symptoms: no fever, no headache, no body aches, no sputum production, no shortness of breath, no wheezing, no change in number of pillows needed to sleep at night, no sweats, no significant weight gain, no significant weight loss, no morning cough, no vomiting, no diarrhea, no rash, no nausea, sore throat Review of Systems:ROS as noted in the HPI Review of Systems Basic Reported By: Patient Physical Exam Adult Basic, Adult Male Complete Reported By: Patient Constitutional: General Appearance: healthy-appearing, well-nourished, well-developed. Level of Distress: NAD. Ambulation: ambulating normally Psychiatric: Mental Status: active and alert Eyes: Lids and Conjunctivae: no discharge Yhv-Klmb-Mmqbh-Throat: Ears: no lesions on external ear, no outer ear tenderness, EACs clear, TMs clear, TM mobility normal. Hearing: no hearing loss. Nose: no lesions on external nose, nares patent, no septal deviation, nasal passages clear, no sinus tenderness, no nasal discharge. Lips, Teeth, and Gums: no mouth or lip ulcers. Oropharynx: erythema, exudates, tonsils enlarged 2+ Neck: Neck: trachea midline. Lymph Nodes: no cervical LAD Lungs: Auscultation: breath sounds normal, good air movement Cardiovascular: Heart Auscultation: RRR, no murmurs
--- OUTSIDE RECORDS SUMMARY | 2018-06-22 16:17 | XMS REPORT | Continuity of Care Document ---
Author Author [facility] Organization [facility] Address Unknown Phone Unavailable Care Team Providers Care Industrial Education Teacher Name Role Phone MD Arteaga Zenithe PP Unavailable Insurance Providers Payer name Policy type / Coverage type Policy ID Covered green party ID Policy [place] [facility] ([place]) [place]) [place] [facility] ([place]) [place] Encounters Encounter Performer Location Date Office Visit Tiffanie Arteaga MD [facility] Jun 01, 2013 Problems Problem Effective Dates Problem Status [...] 2013 Active DERMATITIS May 03, 2013 Active NEOPLASMS UNSPEC NATURE BONE SOFT TISSUE&SKIN Jun 01, 2013 Active NEED PROPH VAC W/COMB [id number]-[id number]-CFYOEBG VAC Jun 01, 2013 Active MUSCLE SPASM Jun 01, 2013 Active Procedures Date Description Comments Dec [...] Nov 08, 2009 Inactive MOXATAG 775 MG [id number] 1 po qd Nov 08, 2009 Inactive [...] Apr 07, 2010 Inactive MOXATAG 775 MG HP71I-ONM 1 po qd Apr 07, 2010 Inactive [...] Oct 28, 2010 Inactive PRISTIQ 50 MG QX81N-ZVD 50 mg daily Oct 06, 2011 Inactive ABILIFY 5 MG TABS 1 tab po daily Oct 06, 2011 Inactive BUSPIRONE HCL 15 MG TABS 1 tab po twice daily Oct 06, 2011 Inactive PRISTIQ 50 MG GD49C-PLL 50 mg daily May 06, 2012 Inactive AZITHROMYCIN 250 MG TABS 4 tabs po x 1 now for infection May 10, 2012 Inactive EFFEXOR XR 150 MG AX65W-CER 1 tab po qam for mood Nov 24, 2012 Active VICODIN 5-300 MG TABS 1-2 tabs po q8 hours as needed for severe pain Nov 24, 2012 Active CYCLOBENZAPRINE HCL 10 MG TABS [...] Active BUPROPION HCL ER (XL) 150 MG FV22Z-VKX 1 tab po daily for mood Nov 24, 2012 Inactive NAPROXEN 500 MG TABS 1 tab po q12 hrs prn pain May 18, 2012 Inactive VIAGRA 50 MG TABS 50mg po x 1 prior to intercourse May 06, 2012 Inactive TERBINAFINE HCL 250 MG TABS 1 tablet daily x 1 month May 03, 2013 Active ATORVASTATIN CALCIUM 10 MG TABS 1 tab po daily prn for cholesterol Jun 01, 2013 Active CLOTRIMAZOLE-BETAMETHASONE 1-0.05 % CREA Apply to the affected area twice a day x 7 days May 03, 2013 Inactive LIDODERM 5 % PTCH Cut to size necessary and apply to affected area for 12 hours a day Jun 01, 2013 Active Vital Signs Date Description Test [...] E&M - 8867-4 PULSE RATE 95 /min Results Date Description Test Name Value [...] 2012 urea nitrogen, blood BUN 14 mg/dL 7-May 06, 2012 urea nitrogen/creatinine ratio, serum BUN/CREAT [...] urea nitrogen/creatinine ratio, serum BUN/CREAT 11 null 6-Nov 24, 2012 albumin, serum ALBUMIN 4.6 g/dL [...] 2013 urea nitrogen, blood BUN 20 mg/dL 7-22 Feb 21, 2013 urea nitrogen/creatinine ratio, serum BUN/CREAT [...]
[2018-06-22] MEDS ORDERED: SODIUM CHLORIDE 0.9% 1000ML 1,000 ML IV STA ×2 (16:59→17:54)
[2018-06-22] MEDS ORDERED: SODIUM CHLORIDE 0.9% 1000ML 1,000 ML ONE (17:00)
[2018-06-22 17:20] LABS: BASOPHILS # (AUTO) 0.1 (0.0-0.1); BASOPHILS % 0.6 % (0.0-1.0); HEMATOCRIT 47.3 % (38.2-49.6); LYMPHOCYTES # (AUTO) 1.4 (1.0-3.2); LYMPHOCYTES % 11.5 % (18.0-39.1); MEAN CORPUSCULAR HEMOGLOBIN 32.2 pg (28-32); MEAN CORPUSCULAR HGB CONC 35.9 g/dL (31-35); MEAN CORPUSCULAR VOLUME 89.6 fL (81-99); MONOCYTES # (AUTO) 0.5 (0.2-0.8); MONOCYTES % 4.2 % (4.4-11.3); NEUTROPHILS # (AUTO) 9.8 (2.1-6.9); NEUTROPHILS % 82.6 % (38.7-80.0); PLATELET COUNT 259 x10e3/uL (140-360); RED BLOOD COUNT 5.28 x10e6/uL (4.3-5.7); RED CELL DISTRIBUTION WIDTH 11.7 % (11.7-14.4)
[2018-06-22 17:31] LABS: INR 0.81; PROTHROMBIN TIME 11.7 seconds (11.9-14.5)
[2018-06-22 17:32] LABS: PARTIAL THROMBOPLASTIN TIME 25.2 seconds (23.8-35.5)
[2018-06-22 17:41] LABS: ALANINE AMINOTRANSFERASE 56 IU/L (0-55); ALBUMIN 4.4 g/dL (3.5-5.0); ALKALINE PHOSPHATASE 60 IU/L (40-150); ANION GAP 16.8 mmol/L (8-16); BLOOD UREA NITROGEN 15 mg/dL (7-26); BUN/CREATININE RATIO 13 (6-25); CALCIUM 10.3 mg/dL (8.4-10.2); CARBON DIOXIDE 23 mmol/L (22-29); CHLORIDE 99 mmol/L (98-107); CREATINE KINASE 99 IU/L (30-200); CREATININE, SERUM 1.17 mg/dL (0.72-1.25); EST GLOMERULAR FILTRATION RATE > 60 ML/MIN (60-); GLUCOSE 201 mg/dL (74-118); MAGNESIUM 2.5 MG/DL (1.3-2.1); POTASSIUM 3.8 mmol/L (3.5-5.1); SODIUM 135 mmol/L (136-145)
[2018-06-22 17:51] LABS: B-TYPE NATRIURETIC PEPTIDE2 < 10.0 pg/mL (0-100)
--- NOTE | 2018-06-22 18:31 | Diagnostic Imaging Report ---
CT CHEST WITH CONTRAST HISTORY: Trouble breathing, cough, recent respiratory infection, PE PROTOCOL COMPARISON: None available. TECHNIQUE: CT scan of the chest WITH intravenous contrast, using PE protocol. The chest was scanned utilizing a multidetector helical scanner from the lung apex through the level of the adrenal glands. Thin section reconstructions were obtained with special concentration on the pulmonary arteries. IV CONTRAST: 100 cc of Isovue-370. PROTOCOL: PE RADIATION DOSE: Total DLP: 547.7 mGy*cm Dose modulation, iterative reconstruction, and/or weight based adjustment of the mA/kV was utilized to reduce the radiation dose to as low as reasonably achievable. COMPLICATIONS: None DISCUSSION: Lungs: The lungs are well inflated and clear. Vessels: * No filling defects are identified within the pulmonary arteries to the segmental levels. * The pulmonary arteries are normal in size. * Incidentally, aberrant right subclavian artery. The course is posterior to the esophagus. Airways: Minimal bronchial wall thickening. Pleura: No pleural effusion or pneumothorax. Heart and mediastinum: Unremarkable Abdomen: Limited evaluation of the upper abdomen. Diffusely decreased attenuation of the liver Lymph nodes: No pathologically enlarged lymph node. Bones: No acute bone abnormality. Soft tissues: Unremarkable IMPRESSION: 1. No pulmonary embolus. 2. Findings which can be seen in the setting of a mild nonspecific bronchitis. 3. No pneumonia. 4. Incidental aberrant right subclavian artery. Signed by: Dr. Montrell Blair D.O., M.M.M. on 06/22/2018 6:28 PM
[2018-06-22] MEDS ORDERED: TETANUS/DIPHTHERIA TOX ADULT 0.5 ML SYR IM ONE (20:00)
[2018-06-22] MEDS ORDERED: LEVOFLOXACIN 750MG/D5W 150ML 150 ML IV SCH (20:00)
[2018-06-22] MEDS ORDERED: METOPROLOL TARTRATE 25 MG TAB PO ONE (20:15)
[2018-06-22] MEDS ORDERED: SODIUM CHLORIDE 0.9% 1000ML 1,000 ML IV SCH ×2 (20:17→23:00)
[2018-06-22] MEDS ORDERED: HYDRALAZINE HCL 20 MG/ML VIAL IV PRN (20:30)
[2018-06-22] MEDS ORDERED: ALBUTEROL SULF 0.083% NEB SOLN 3 ML NEB NEB PRN (20:30)
[2018-06-22] MEDS ORDERED: IPRATROPIUM BROMIDE 0.02% 2.5 ML NEB NEB PRN (20:30)
--- OUTSIDE RECORDS SUMMARY | 2018-06-22 20:30 | XMS REPORT ---
Author [facility] Address Unknown Phone Unavailable Care Team Providers Care Recreation Therapy Director Name Role Phone Gail BENNETT Unavailable Unavailable Problems This patient has no known problems. Allergies, Adverse Reactions, Alerts This patient has no known allergies or adverse reactions. Medications This patient has no known medications. Results Test Description Test Time Test Comments Text Results Atomic Results Result Comments CT CHEST W 2018-06-22 18:21:00 [place] [address] Patient Name: KIANA EVANS MR #: [id number] : 1980 Age/Sex: 37/M Req #: [id number] [facility] Physician: Ordered by: MIKE BENNETT MD Report #: [id number] Location: ER Room/Bed: Procedure: [id number] CT/CT CHEST W Exam Date: 06/22/18 Exam Time: 1808 REPORT STATUS: Signed CT CHEST WITH CONTRAST HISTORY: Trouble breathing, cough, recent respiratory infection, PE PROTOCOL COMPARISON: None available. TECHNIQUE: CT scan of the chest WITH intravenous contrast, using PE protocol. The chest was scanned utilizing a multidetector helical scanner from the lung apex through the level of the adrenal glands. Thin section reconstructions were obtained with special concentration on the pulmonary arteries. IV CONTRAST: 100 cc of Isovue-370. PROTOCOL: PE RADIATION DOSE: Total DLP: 547.7 mGy*cm Dose modulation, iterative reconstruction, and/or weight based adjustment of the mA/kV was utilized to reduce the radiation dose to as low as reasonably achievable. COMPLICATIONS: None DISCUSSION: Lungs: The lungs are well inflated and clear. Vessels: * No filling defects are identified within the pulmonary arteries to the segmental levels. * The pulmonary arteries are normal in size. * Incidentally, aberrant right subclavian artery. The course is posterior to the esophagus. Airways: Minimal bronchial wall thickening. Pleura: No pleural effusion or pneumothorax. Heart and mediastinum: Unremarkable Abdomen: Limited evaluation of the upper abdomen. Diffusely decreased attenuation of the liver Lymph nodes: No pathologically enlarged lymph node. Bones: No acute bone abnormality. Soft tissues: Unremarkable IMPRESSION: 1. No pulmonary embolus. 2. Findings which can be seen in the setting of a mild nonspecific bronchitis. 3. No pneumonia. 4. Incidental aberrant right subclavian artery. Signed by: Dr. Torie Blair D.O., M.M.M. on 06/22/2018 6:28 PM Dictated By: TORIE BLAIR DO 27 Transcribed By: LUCIANA on 06/22/181827 COPY TO: MIKE BENNETT MD
[2018-06-22] MEDS ORDERED: IOPAMIDOL 370 MG/ML 200 ML INFUS..BTL INJ ONE (21:58)
[2018-06-22] MEDS ORDERED: SODIUM CHLORIDE 0.9% 50ML 50 ML ONE (21:58)
[2018-06-22 22:29] VITALS: BP 128/84
[2018-06-22 22:42] VITALS: BP 128/84
[2018-06-22] MEDS: LEVOFLOXACIN 750MG/D5W 150ML 150 ML IV SCH (23:28)
[2018-06-22] MEDS ORDERED: LITHIUM CARBON300 M1 (23:40)
[2018-06-22] MEDS ORDERED: METOPROLOL SUCC50 MG PO (23:40)
[2018-06-22] MEDS ORDERED: MUCINEX DM ER1 EACH PO (23:40)
[2018-06-22] MEDS ORDERED: AUGMENTIN 875-1 EACH PO (23:40)
[2018-06-22] MEDS ORDERED: PREDNISONE20 MG PO (23:40)
[2018-06-22] MEDS ORDERED: NEXIUM40 MG (23:40)
[2018-06-22] MEDS ORDERED: MONTELUKAST SOD10 MG PO (23:40)
[2018-06-22] MEDS ORDERED: HYDROXYZINE HCL25 MG PO (23:40)
[2018-06-23] VITALS (10 sets, daily range): BP systolic 128–155; BP diastolic 84–106
[2018-06-23 01:21] LABS: CREATINE KINASE 72 IU/L (30-200)
[2018-06-23 05:40] LABS: BASOPHILS # (AUTO) 0.1 (0.0-0.1); BASOPHILS % 0.7 % (0.0-1.0); EOSINOPHILS % 0.3 % (0.0-6.0); HEMATOCRIT 42.3 % (38.2-49.6); LYMPHOCYTES # (AUTO) 3.3 (1.0-3.2); LYMPHOCYTES % 28.6 % (18.0-39.1); MEAN CORPUSCULAR HEMOGLOBIN 32.5 pg (28-32); MEAN CORPUSCULAR HGB CONC 35.5 g/dL (31-35); MEAN CORPUSCULAR VOLUME 91.6 fL (81-99); MONOCYTES % 8.2 % (4.4-11.3); NEUTROPHILS # (AUTO) 7.2 (2.1-6.9); NEUTROPHILS % 61.5 % (38.7-80.0); PLATELET COUNT 204 x10e3/uL (140-360); RED BLOOD COUNT 4.62 x10e6/uL (4.3-5.7); RED CELL DISTRIBUTION WIDTH 11.8 % (11.7-14.4)
[2018-06-23 06:07] LABS: ALANINE AMINOTRANSFERASE 40 IU/L (0-55); ALBUMIN 3.5 g/dL (3.5-5.0); ALKALINE PHOSPHATASE 46 IU/L (40-150); ANION GAP 12.7 mmol/L (8-16); BLOOD UREA NITROGEN 15 mg/dL (7-26); BUN/CREATININE RATIO 14 (6-25); CALCIUM 9.5 mg/dL (8.4-10.2); CARBON DIOXIDE 28 mmol/L (22-29); CHLORIDE 102 mmol/L (98-107); CREATININE, SERUM 1.11 mg/dL (0.72-1.25); EST GLOMERULAR FILTRATION RATE > 60 ML/MIN (60-); GLUCOSE 108 mg/dL (74-118); POTASSIUM 3.7 mmol/L (3.5-5.1); SODIUM 139 mmol/L (136-145)
--- NOTE | 2018-06-23 06:40 | NUR ---
The patient is laying in bed comfortably. Eyes closed and respirations are even and unlabored. IV patent infusing NS. No distress or SOB noted. HOB elevated, Bed low, wheels locked, and call light within reach.
[2018-06-23] MEDS ORDERED: ONDANSETRON HCL INJ 2MG/ML 2ML 2 MG/ML VIAL IV PRN (08:15)
[2018-06-23] MEDS ORDERED: ACETAMINOPHEN 325 MG TAB PO PRN (08:15)
[2018-06-23] MEDS ORDERED: HYDROCHLOROTHIAZIDE 25 MG TAB PO NR (09:00)
[2018-06-23 09:06] LABS: CREATINE KINASE 60 IU/L (30-200)
[2018-06-23] MEDS: FLUTICASONE PROPIONATE NASAL SPRAY NS SCH ×2 (10:31→19:14)
[2018-06-23] MEDS: HYDROXYZINE HCL 25 MG TAB PO SCH ×2 (10:31→19:14)
[2018-06-23] MEDS: METHYLPREDNISOLONE SOD SUCC 40 MG/ML VIAL 1ML IV SCH ×2 (10:31→21:59)
[2018-06-23] MEDS: LORATADINE 10 MG TAB PO SCH (10:31)
[2018-06-23] MEDS: GUAIFENESIN 600MG/DEXTROMETHORPHAN 30MG TABSR PO SCH ×2 (10:31→19:14)
[2018-06-23] MEDS: LISINOPRIL 10 MG TAB PO SCH (10:32)
[2018-06-23] MEDS: METOPROLOL SUCCINATE 50 MG TAB XL PO SCH (10:32)
[2018-06-23] MEDS: PANTOPRAZOLE SOD 40 MG TABEC PO SCH (10:32)
[2018-06-23 13:08] LABS: BILIRUBIN,URINE NEGATIVE (NEGATIVE); CLARITY,URINE CLEAR (CLEAR); COLOR,URINE YELLOW (YELLOW); EPITHELIAL CELLS,URINE RARE /LPF; KETONES,URINE NEGATIVE (NEGATIVE); LEUKOCYTE ESTERASE ,URINE NEGATIVE (NEGATIVE); NITRITE,URINE NEGATIVE (NEGATIVE); PROTEIN,URINE DIPSTICK NEGATIVE (NEGATIVE); URINE UROBILINOGEN 0.2 mg/dL (0.2 - 1); WBC,URINE (MAN) 0-5 /HPF (0-5)
[2018-06-23 16:09] LABS: CREATINE KINASE 64 IU/L (30-200)
[2018-06-23] MEDS ORDERED: FAMOTIDINE 20 MG TAB PO SCH (16:30)
--- NOTE | 2018-06-23 19:50 | NUR ---
Got report from previous nurse. Call light within reach. Patient sitting in bed. No pain or distress.
[2018-06-23] MEDS ORDERED: LITHIUM CARBONATE ER 300 MG TAB PO SCH (21:00)
[2018-06-23] MEDS ORDERED: TETANUS/DIPHTHERIA TOX ADULT 0.5 ML SYR IM ONE (21:15)
[2018-06-23] MEDS: LEVOFLOXACIN 750MG/D5W 150ML 150 ML IV SCH (22:19)
--- NOTE | 2018-06-23 22:30 | NUR ---
Gave report to Carolynn med surg 1 nurse. Patient transferred with belongings via wheelchair to room 108. Patient in no pain or distress. A&O x3.
--- NOTE | 2018-06-23 22:32 | NUR ---
Received patient from [facility]. Patient is A&Ox3, lungs clear, bowel sounds active, skin intact, no edema noted. No SOB reported at this time. No pain reported. No S&S of distress. Bed locked in lowest position, side rails upx2, call light in reach.
[2018-06-24] VITALS: BP 147/97
[2018-06-24 00:28] VITALS: BP 142/67
--- NOTE | 2018-06-24 03:00 | NUR ---
Patient resting in bed at this time. Some difficulty staying asleep reportedly due to anxiety about getting discharged in time for family event wednesday. No S&S of distress noted.
[2018-06-24 03:07] LABS: BASOPHILS # (AUTO) 0.1 (0.0-0.1); BASOPHILS % 0.6 % (0.0-1.0); HEMATOCRIT 46.6 % (38.2-49.6); HEMOGLOBIN 16.4 g/dL (14.0-18.0); LYMPHOCYTES # (AUTO) 1.3 (1.0-3.2); LYMPHOCYTES % 12.1 % (18.0-39.1); MEAN CORPUSCULAR HEMOGLOBIN 32.3 pg (28-32); MEAN CORPUSCULAR HGB CONC 35.2 g/dL (31-35); MEAN CORPUSCULAR VOLUME 91.9 fL (81-99); MONOCYTES # (AUTO) 0.3 (0.2-0.8); MONOCYTES % 3.1 % (4.4-11.3); NEUTROPHILS % 83.3 % (38.7-80.0); PLATELET COUNT 211 x10e3/uL (140-360); RED BLOOD COUNT 5.07 x10e6/uL (4.3-5.7); RED CELL DISTRIBUTION WIDTH 11.7 % (11.7-14.4)
[2018-06-24 03:28] LABS: ANION GAP 15.7 mmol/L (8-16); BLOOD UREA NITROGEN 18 mg/dL (7-26); BUN/CREATININE RATIO 17 (6-25); CALCIUM 10.1 mg/dL (8.4-10.2); CARBON DIOXIDE 24 mmol/L (22-29); CHLORIDE 100 mmol/L (98-107); CREATININE, SERUM 1.08 mg/dL (0.72-1.25); EST GLOMERULAR FILTRATION RATE > 60 ML/MIN (60-); GLUCOSE 169 mg/dL (74-118); MAGNESIUM 2.7 MG/DL (1.3-2.1); POTASSIUM 3.7 mmol/L (3.5-5.1); SODIUM 136 mmol/L (136-145)
[2018-06-24 04:00] VITALS: BP 133/82
[2018-06-24] MEDS ORDERED: Fluticasone Propionate NS (06:55)
[2018-06-24] MEDS ORDERED: ESIDRIX25 MG PO (06:55)
[2018-06-24] MEDS ORDERED: LEVAQUIN500 MG PO (06:55)
[2018-06-24] MEDS ORDERED: PANTOPRAZOLE SO40 MG PO (06:55)
[2018-06-24] MEDS ORDERED: PREDNISONE10 MG PO (06:55)
[2018-06-24] MEDS ORDERED: LISINOPRIL10 MG PO (06:55)
[2018-06-24] MEDS ORDERED: MUCINEX DM ER1 EACH PO (06:55)
--- NOTE | 2018-06-24 07:15 | NUR ---
Rcvd patient in report this am. Patient is asleep in bed at this time. No s/s of distress noted
[2018-06-24 07:43] VITALS: BP 133/87
[2018-06-24] MEDS: LISINOPRIL 10 MG TAB PO SCH (08:27)
[2018-06-24] MEDS: FLUTICASONE PROPIONATE NASAL SPRAY NS SCH (08:27)
[2018-06-24] MEDS: PANTOPRAZOLE SOD 40 MG TABEC PO SCH (08:27)
[2018-06-24] MEDS: GUAIFENESIN 600MG/DEXTROMETHORPHAN 30MG TABSR PO SCH (08:27)
[2018-06-24] MEDS: METOPROLOL SUCCINATE 50 MG TAB XL PO SCH (08:27)
[2018-06-24] MEDS: HYDROXYZINE HCL 25 MG TAB PO SCH (08:27)
[2018-06-24] MEDS: LORATADINE 10 MG TAB PO SCH (08:27)
[2018-06-24] MEDS: METHYLPREDNISOLONE SOD SUCC 40 MG/ML VIAL 1ML IV SCH (08:27)
[2018-06-24 08:57] VITALS: BP 132/60
[2018-06-24] MEDS ORDERED: ONDANSETRON HCL 4 MG ORAL DISINTEGRATING TAB PO PRN (09:00)
[2018-06-24] MEDS ORDERED: HYDROCHLOROTHIAZIDE 25 MG TAB PO SCH (09:00)
--- NOTE | 2018-06-24 09:58 | NUR ---
Patient is AAOx3. Patient lung quiroz clear to auscultation. No shortness of breath or cough noted. Patient resting in bed. Bowel sounds present x4. No edema noted. Right AC 18G in place. Patient ambulates on his own.
[2018-06-24 12:00] VITALS: BP 128/75
[2018-06-24] MEDS: LEVOFLOXACIN 750MG/D5W 150ML 150 ML IV SCH (12:33)
--- NOTE | 2018-06-24 14:29 | NUR ---
IV removed at this time from right AC. Pressure dressing applied.
--- NOTE | 2018-06-24 15:59 | NUR ---
Patient discharged from facility to home. Patient assisted out via staff. Reviewed all discharge paperwork with patient, RX's given, and f/u appts reviewed. No s/s of distress noted
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
--- NOTE | 2018-06-26 06:22 | Discharge Summary ---
ADMISSION DIAGNOSES: Bronchopneumonia, hypertension, chest pain, bipolar, depression, anxiety. DISCHARGE DIAGNOSES: Bronchopneumonia, hypertension, chest pain, bipolar, depression, anxiety, asthma, rule out ACS. HISTORY: The patient has a history of hypertension, GERD, depression, anxiety. SURGICAL HISTORY: None. FAMILY HISTORY: The patient's mom had cancer. SOCIAL HISTORY: The patient admits to drinking alcohol most days about 6 to 8 beers a day for about a year. HOSPITAL COURSE: A 37-year-old male with shortness of breath, cough and wheeze for 2 or 3 weeks. He also had intermittent substernal chest tightness that did not radiate. Chest pain worsened with deep breath. He denies nausea, vomiting, dizziness, but admits to feeling hot all day on the day prior to admission. He has gotten a prescription for Augmentin and for a Z-Ivan, which did not improve symptoms. So, he is admitted for failed outpatient treatment for bronchopneumonia using two different antibiotics. On admission, the patient was started on Levaquin, Mucinex, nebs, Flonase, Solu-Medrol, and Claritin. CT of the chest on admission showed no PE. Findings can be seen in the setting of mild nonspecific bronchitis. Troponin's were negative x3. Echo showed an EF of 65% to 70%. Blood culture negative. Urine culture negative. The patient will discharge home with Flonase, Symbicort, hydrochlorothiazide, Levaquin, lisinopril, Protonix, and prednisone tapered down. He will follow up with primary care in 1 to 2 weeks. The patient understands discharge instructions and agrees to plan. Vital signs stable. The patient afebrile. Dictated by Cristina Brasher NP MD GINGER Farrell/MODL /[id number]
== END 2018-06-24 16:02 | disposition home or self-care (01) | DRG 195 ==
LOC: ER 16:14 → ERHOLD 20:25 → IMCU 21:48 → OBSVTOIN 06-23 08:27 → MED/SURG 06-23 22:33
PROVIDERS: ADMIT Internal Medicine; ATTEND Internal Medicine
DX: J18.0 Bronchopneumonia, unspecified organism (principal); I10 Essential (primary) hypertension; F32.9 Major depressive disorder, single episode, unspecified
CPT/HCPCS: 36415; 71260; 80048; 80053; 81001; 82550; 82553; 83036; 83605; 83735; 83880; 84484; 85025; 85610; 85730; 87040; 87070; 87086; 87205; 90714; 93005; 93306; 94640; 99284; G0378; J0360; J2920; J3410; J7030; Q9967

== ENCOUNTER 2020-07-21 03:37 | Emergency (ER) | payer SELFPAY ==
[~2020-07-21] VITALS: Ht 175.3 cm; Wt 107.0 kg
[~2020-07-21 03:37] MED LIST: AUGMENTIN 875-1 EACH PO; ESIDRIX25 MG PO; Fluticasone Propionate NS; HYDROXYZINE HCL25 MG PO; LEVAQUIN500 MG PO; LISINOPRIL10 MG PO; LITHIUM CARBON300 M1; METOPROLOL SUCC50 MG PO; MONTELUKAST SOD10 MG PO; MUCINEX DM ER1 EACH PO; NEXIUM40 MG; PANTOPRAZOLE SO40 MG PO; PREDNISONE10 MG PO; PREDNISONE20 MG PO
== END 2020-07-21 03:54 | disposition home or self-care (01) ==
LOC: ER 03:46
DX: H57.13 Ocular pain, bilateral (principal); I10 Essential (primary) hypertension; F41.9 Anxiety disorder, unspecified; K21.9 Gastro-esophageal reflux disease without esophagitis; F31.9 Bipolar disorder, unspecified
CPT/HCPCS: 99282

== ENCOUNTER 2021-07-08 19:28 | Emergency (ER) | payer OTHER ==
[~2021-07-08] VITALS: Ht 175.3 cm; Wt 99.8 kg
[2021-07-08] MEDS ORDERED: TRAMADOL HCL 50 MG TAB PO STA (19:47)
[2021-07-08] MEDS ORDERED: TRAMADOL HCL 50 MG TAB ONE (20:02)
[2021-07-08] MEDS ORDERED: ACETAMINOPHEN-1 EAC4 PO (21:05)
[2021-07-08 21:10] VITALS: BP 131/81
[2021-07-08] MEDS ORDERED: KETOROLAC TROMETHAMINE 60 MG/2 ML VIAL IM ONE (21:15)
[2021-07-08] MEDS ORDERED: KETOROLAC TROMETHAMINE 60 MG/2 ML VIAL ONE (21:19)
== END 2021-07-08 21:09 | disposition home or self-care (01) ==
LOC: ER 19:45
DX: M25.562 Pain in left knee (principal); S93.492A Sprain of other ligament of left ankle, initial encounter; Y93.61 Activity, american tackle football; Y92.89 Other specified places as the place of occurrence of the external cause; I10 Essential (primary) hypertension; F41.9 Anxiety disorder, unspecified; F31.9 Bipolar disorder, unspecified; K21.9 Gastro-esophageal reflux disease without esophagitis
CPT/HCPCS: 99283; J1885

== ENCOUNTER 2023-06-03 07:15 | Emergency (ER) | payer SELFPAY ==
[~2023-06-03] VITALS: Ht 175.3 cm; Wt 99.8 kg
[~2023-06-03 07:15] MED LIST changes: +ACETAMINOPHEN-1 EAC4 PO
[2023-06-03 07:37] LABS: BASOPHILS # (AUTO) 0.1 (0.0-0.1); BASOPHILS % 1.7 % (0.0-1.0); EOSINOPHILS # (AUTO) 0.1 (0.0-0.4); EOSINOPHILS % 1.6 % (0.0-6.0); HEMATOCRIT 43.1 % (38.2-49.6); HEMOGLOBIN 15.6 g/dL (14.0-18.0); LYMPHOCYTES % 27.2 % (18.0-39.1); MEAN CORPUSCULAR HEMOGLOBIN 33.8 pg (28-32); MEAN CORPUSCULAR HGB CONC 36.2 g/dL (31-35); MEAN CORPUSCULAR VOLUME 93.3 fL (81-99); MONOCYTES # (AUTO) 0.6 (0.2-0.8); MONOCYTES % 8.3 % (4.4-11.3); NEUTROPHILS # (AUTO) 4.6 (2.1-6.9); NEUTROPHILS % 60.9 % (38.7-80.0); PLATELET COUNT 161 x10e3/uL (140-360); RED BLOOD COUNT 4.62 x10e6/uL (4.3-5.7); RED CELL DISTRIBUTION WIDTH 11.9 % (11.7-14.4); WHITE BLOOD COUNT 7.51 x10e3/uL (4.8-10.8)
[2023-06-03] MEDS ORDERED: IOPAMIDOL 370 MG/ML 100 ML INFUS..BTL INJ ONE ×6 (08:00→09:41)
[2023-06-03] MEDS ORDERED: Sodium Chloride 0.9% 50ML Bag ONE ×3 (08:00→09:00)
[2023-06-03 08:02] LABS: INR 0.94; PROTHROMBIN TIME 13.2 seconds (11.9-14.5)
[2023-06-03 08:03] LABS: PARTIAL THROMBOPLASTIN TIME 32.7 seconds (23.8-35.5)
[2023-06-03] MEDS ORDERED: METHYLPREDNISOLONE SOD SUCC 125 MG/2ML VIAL ONE ×2 (08:05→14:31)
[2023-06-03] MEDS ORDERED: KETOROLAC TROMETHAMINE 30 MG/ML VIAL ONE ×2 (08:05→14:31)
[2023-06-03] MEDS ORDERED: SODIUM CHLORIDE 0.9% 1000ML 1,000 ML ONE (08:05)
[2023-06-03 08:06] LABS: ALANINE AMINOTRANSFERASE 41 IU/L (0-55); ALBUMIN 4.2 g/dL (3.5-5.0); ALKALINE PHOSPHATASE 69 IU/L (40-150); ANION GAP 19.4 mmol/L (8-16); BILIRUBIN,TOTAL 0.7 mg/dL (0.2-1.2); BLOOD UREA NITROGEN 7 mg/dL (7-26); BUN/CREATININE RATIO 8 (6-25); CALCIUM 9.7 mg/dL (8.4-10.2); CARBON DIOXIDE 22 mmol/L (22-29); CHLORIDE 104 mmol/L (98-107); CREATINE KINASE 157 IU/L (30-200); CREATININE, SERUM 0.86 mg/dL (0.72-1.25); EST GLOMERULAR FILTRATION RATE 112 ML/MIN (>=60); GLUCOSE 156 mg/dL (74-118); MAGNESIUM 2.1 MG/DL (1.3-2.1); SODIUM 142 mmol/L (136-145); TOTAL PROTEIN 8.4 g/dL (6.5-8.1)
[2023-06-03] MEDS: METHYLPREDNISOLONE SOD SUCC 125 MG/2ML VIAL IV STA (08:06)
[2023-06-03 08:07] LABS: POTASSIUM 3.4 mmol/L (3.5-5.1)
[2023-06-03] MEDS: SODIUM CHLORIDE 0.9% 1000ML 1,000 ML IV STA (08:07)
[2023-06-03] MEDS: KETOROLAC TROMETHAMINE 30 MG/ML VIAL IV STA (08:07)
[2023-06-03 08:23] LABS: TROPONIN I < 0.001 ng/mL (0-0.300)
[2023-06-03] MEDS ORDERED: PROVENTIL HFA6.7 GM INH (10:39)
[2023-06-03] MEDS ORDERED: PREDNISONE20 MG PO (10:39)
[2023-06-03 10:45] VITALS: O2SAT 97
[2023-06-03] MEDS ORDERED: SODIUM CHLORIDE 0.9% 1000 ML BAG ONE (14:31)
== END 2023-06-03 10:58 | disposition home or self-care (01) ==
LOC: ER 07:28
DX: R06.00 Dyspnea, unspecified (principal); R07.89 Other chest pain; Z11.52 Encounter for screening for COVID-19; R94.31 Abnormal electrocardiogram [ECG] [EKG]; F17.210 Nicotine dependence, cigarettes, uncomplicated
CPT/HCPCS: 36415; 70450; 71045; 71260; 80053; 82550; 83735; 83880; 84484; 85025; 85610; 85730; 87400; 87420; 93005; 99284; J1885; J2919; J7030; Q9967; U0002

== ENCOUNTER 2023-06-08 22:46 | Emergency (ER) | payer SELFPAY ==
[~2023-06-08] VITALS: Ht 175.3 cm; Wt 99.8 kg
[~2023-06-08 22:46] MED LIST changes: +PROVENTIL HFA6.7 GM INH
[2023-06-08 23:16] LABS: BASOPHILS # (AUTO) 0.1 (0.0-0.1); BASOPHILS % 0.9 % (0.0-1.0); EOSINOPHILS # (AUTO) 0.2 (0.0-0.4); EOSINOPHILS % 1.5 % (0.0-6.0); HEMATOCRIT 43.8 % (38.2-49.6); HEMOGLOBIN 15.9 g/dL (14.0-18.0); LYMPHOCYTES # (AUTO) 2.9 (1.0-3.2); LYMPHOCYTES % 23.8 % (18.0-39.1); MEAN CORPUSCULAR HEMOGLOBIN 33.6 pg (28-32); MEAN CORPUSCULAR HGB CONC 36.3 g/dL (31-35); MEAN CORPUSCULAR VOLUME 92.6 fL (81-99); MONOCYTES # (AUTO) 1.1 (0.2-0.8); MONOCYTES % 8.5 % (4.4-11.3); NEUTROPHILS % 64.9 % (38.7-80.0); PLATELET COUNT 167 x10e3/uL (140-360); RED BLOOD COUNT 4.73 x10e6/uL (4.3-5.7); RED CELL DISTRIBUTION WIDTH 11.7 % (11.7-14.4); WHITE BLOOD COUNT 12.36 x10e3/uL (4.8-10.8)
[2023-06-08 23:34] LABS: AMPHETAMINES SCREEN,URINE NEGATIVE (NEGATIVE); BENZODIAZEPINES SCREEN,URINE NEGATIVE (NEGATIVE); CANNABINOIDS SCREEN,URINE NEGATIVE (NEGATIVE); METHADONE SCREEN, URINE NEGATIVE (NEGATIVE); OPIATES SCREEN,URINE NEGATIVE (NEGATIVE); PHENCYCLIDINE SCREEN,URINE NEGATIVE (NEGATIVE)
[2023-06-08 23:37] LABS: ALANINE AMINOTRANSFERASE 37 IU/L (0-55); ALBUMIN 4.2 g/dL (3.5-5.0); ALKALINE PHOSPHATASE 64 IU/L (40-150); ANION GAP 22.2 mmol/L (8-16); BILIRUBIN,TOTAL 1.9 mg/dL (0.2-1.2); BLOOD UREA NITROGEN 13 mg/dL (7-26); BUN/CREATININE RATIO 14 (6-25); CALCIUM 10.1 mg/dL (8.4-10.2); CARBON DIOXIDE 20 mmol/L (22-29); CHLORIDE 98 mmol/L (98-107); CREATINE KINASE 108 IU/L (30-200); CREATININE, SERUM 0.91 mg/dL (0.72-1.25); EST GLOMERULAR FILTRATION RATE 109 ML/MIN (>=60); GLUCOSE 131 mg/dL (74-118); SODIUM 137 mmol/L (136-145); TOTAL PROTEIN 8.3 g/dL (6.5-8.1)
[2023-06-08 23:42] LABS: POTASSIUM 3.2 mmol/L (3.5-5.1)
[2023-06-08 23:49] LABS: TROPONIN I < 0.001 ng/mL (0-0.300)
[2023-06-09 01:52] LABS: TROPONIN I < 0.001 ng/mL (0-0.300)
[2023-06-09 01:58] LABS: CREATINE KINASE 100 IU/L (30-200)
[2023-06-09 02:41] VITALS: BP 137/90; O2SAT 97
== END 2023-06-09 02:43 | disposition home or self-care (01) ==
LOC: ER 22:51
DX: R20.0 Anesthesia of skin (principal); R07.89 Other chest pain; R94.31 Abnormal electrocardiogram [ECG] [EKG]
CPT/HCPCS: 36415; 71045; 80053; 80307; 80320; 82550; 83880; 84484; 85025; 93005; 99284

== ENCOUNTER 2024-02-14 20:25 | Emergency (ER) | payer SELFPAY ==
[~2024-02-14] VITALS: Ht 175.3 cm; Wt 102.1 kg
[2024-02-14 21:19] LABS: BASOPHILS # (AUTO) 0.1 (0.0-0.1); BASOPHILS % 0.8 % (0.0-1.0); EOSINOPHILS # (AUTO) 0.1 (0.0-0.4); EOSINOPHILS % 0.9 % (0.0-6.0); HEMATOCRIT 46.7 % (38.2-49.6); HEMOGLOBIN 15.6 g/dL (14.0-18.0); LYMPHOCYTES # (AUTO) 1.9 (1.0-3.2); LYMPHOCYTES % 19.6 % (18.0-39.1); MEAN CORPUSCULAR HEMOGLOBIN 32.6 pg (28-32); MEAN CORPUSCULAR HGB CONC 33.4 g/dL (31-35); MEAN CORPUSCULAR VOLUME 97.7 fL (81-99); MONOCYTES # (AUTO) 0.8 (0.2-0.8); MONOCYTES % 7.9 % (4.4-11.3); NEUTROPHILS # (AUTO) 6.9 (2.1-6.9); NEUTROPHILS % 70.5 % (38.7-80.0); PLATELET COUNT 155 x10e3/uL (140-360); RED BLOOD COUNT 4.78 x10e6/uL (4.3-5.7); RED CELL DISTRIBUTION WIDTH 11.4 % (11.7-14.4); WHITE BLOOD COUNT 9.75 x10e3/uL (4.8-10.8)
[2024-02-14 21:40] LABS: ALBUMIN 4.4 g/dL (3.5-5.0); ANION GAP 21.3 mmol/L (8-16); BILIRUBIN,TOTAL 1.5 mg/dL (0.2-1.2); CALCIUM 10.7 mg/dL (8.4-10.2); CREATININE, SERUM 0.89 mg/dL (0.72-1.25); TOTAL PROTEIN 8.7 g/dL (6.5-8.1)
[2024-02-14 21:42] LABS: POTASSIUM 3.3 mmol/L (3.5-5.1)
[2024-02-14 21:51] LABS: LIPASE 65 U/L (8-78)
[2024-02-14 22:00] LABS: TROPONIN I < 0.001 ng/mL (0-0.300)
[2024-02-14] MEDS: DICYCLOMINE HCL 20 MG/2 ML VIAL IM ONE (22:11)
[2024-02-14] MEDS: SODIUM CHLORIDE 0.9% 1000ML 1,000 ML IV ONE (22:11)
[2024-02-14] MEDS: KETOROLAC TROMETHAMINE 30 MG/ML VIAL IV STA (22:12)
[2024-02-14] MEDS ORDERED: IOPAMIDOL 370 MG/ML 100 ML INFUS..BTL INJ ONE (23:22)
[2024-02-15 00:52] VITALS: PULSE 91; RESP 19; TEMP 98.4
[2024-02-15] MEDS ORDERED: PANTOPRAZOLE SO40 MG PO (01:00)
[2024-02-15 01:13] VITALS: BP 148/94; PULSE 91; RESP 19; TEMP 98.4; O2SAT 98
== END 2024-02-15 01:25 | disposition home or self-care (01) ==
LOC: ER 20:44
DX: R10.11 Right upper quadrant pain (principal); K29.70 Gastritis, unspecified, without bleeding; F10.10 Alcohol abuse, uncomplicated; K76.0 Fatty (change of) liver, not elsewhere classified; R94.31 Abnormal electrocardiogram [ECG] [EKG]
CPT/HCPCS: 36415; 74177; 76705; 80053; 83690; 84484; 85025; 93005; 99284; J0500; J1885; J2470; J7030; Q9967